=== PATIENT | female | born 1940 | race Caucasian/White ===

== ENCOUNTER 2023-07-30 16:15 | Observation (INO) ==
--- NOTE | 2023-07-30 16:39 | Emergency Department Note ---
Impression & Plan Closed pelvic fracture, Fall ED Provider Note NAME: MARCY JOHNSON AGE: 82 SEX: F : 1940 ARRIVES VIA: Ambulance INFORMANT: Patient, EMS ED PROVIDER(S): Allen Taylor DO CHIEF COMPLAINT: Hip pain HPI: The patient is an 82-year-old female who presented to the emergency department for an evaluation for pain. The patient had a fall yesterday. Apparently she had outpatient x-rays which showed a possible fracture. She was sent to the emergency department for further evaluation. There is no reported head injury. There is no reported neck pain. The patient does have underlying dementia. ROS: See above HPI for pertinent positives & negatives. A total of 10 systems reviewed and were otherwise negative. PAST MEDICAL HISTORY: See Below PAST SURGICAL HISTORY: See Below FAMILY HISTORY: See Below SOCIAL HISTORY: See Below HOME MEDICATIONS: See Below ALLERGIES: See Below VITALS: See Below PHYSICAL EXAMINATION: GENERAL: The patient is awake and alert very anxious appearing. EYES: The conjunctivae are clear. The pupils are round and reactive. EARS, NOSE, MOUTH AND THROAT: The nose is without any evidence of any deformity. NECK: The neck is nontender and supple. RESPIRATORY: Normal respiratory effort is noted there is no evidence of wheezing rhonchi or rales CARDIOVASCULAR: Regular rate and rhythm noted there no murmurs rubs or gallops normal S1 normal S2. GASTROINTESTINAL: The abdomen is soft. Abdomen is nontender. BACK: No midline tenderness or or step-off noted range of motion in flexion extension as well as rotation no signs of muscle spasm noted MUSCULOSKELETAL/EXTREMITIES: There is pain with range of motion testing of the left hip. There is no shortening. There is no pain with range of motion testing of the right hip. SKIN: There is no obvious evidence of any rash. There are no petechiae, pallor or cyanosis noted. NEUROLOGIC: Patient is awake alert and oriented to person place but not time or situation. Strength was symmetric but diminished MEDICAL DECISION MAKING: The patient is an 82-year-old female who presented to the emergency department for an evaluation of pelvic pain. The patient had a fall recently. She had outpatient radiographic studies that showed she may have a pelvic fracture. The patient was sent to the emergency department for further evaluation after she tried to walk again today and fell once again. The patient did appear to have left-sided hip pain but she had no shortening or deformity. I discussed patient's laboratory and radiographic studies with her. I discussed her condition with the on-call [facility] hospitalist. I discussed her condition with the emergency department case packer as well. We did try to call the patient's personal-fdc to see if they would be willing to manage her with inpatient rehabilitation but they were unable to. Triage Nursing notes reviewed. Prior medical records reviewed Vital Signs: reviewed and remarkable for elevated blood pressure. Differential diagnosis: Fracture, dislocation, contusion, intra-abdominal, pneumothorax, intrathoracic, intracranial, neurologic, compartment syndrome, rhabdomyolysis, as well as other pathologies. ER treatment provided: See below Diagnostics interpreted by me: ECG: EKG was obtained in the emergency department. My interpretation is normal sinus rhythm at 99 bpm. There is no ectopy. There is no acute ST segment abnormalities noted. No previous tracing was available. Cardiac Monitoring: An order was placed for continuous cardiac monitoring. The monitor shows a rate of 115 bpm with sinus tachycardia. Laboratory studies: As stated above and show below. Imaging studies: See below. Radiographic imaging was reviewed by myself Consultation(s): I discussed this case with Dr. Clark who is on-call for the [facility] hospitalist group. 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 GERD (gastroesophageal reflux disease) Dysphagia, oral phase Depression Anxiety Dementia Social History Smoking Status: Never smoker Feels Safe at Home: Yes Allergies Allergies Allergy/AdvReac Type Severity Reaction Status Date / Time amoxicillin Allergy Unknown Unverified 07/30/23 19:40 clarithromycin [From Biaxin] Allergy Unknown Unverified 07/30/23 19:40 Penicillins Allergy Unknown Unverified 07/30/23 19:40 Home Meds Home Medications Medication Instructions Recorded Confirmed acetaminophen 325 mg tablet 650 mg PO Q6 PRN .Temp >101/mild 07/30/23 07/30/23 pain albuterol sulfate 90 mcg/actuation 2 puff inhalation Q6 PRN Shortness 07/30/23 07/30/23 aerosol inhaler Of Breath Or Wheezing esomeprazole magnesium 40 mg 40 mg PO DAILY 07/30/23 07/30/23 capsule,delayed release (Nexium) fluticasone propionate 115 2 puff inhalation BID 07/30/23 07/30/23 mcg-salmeterol 21 mcg/actuation HFA inhaler (Advair HFA) hydroxyzine pamoate 25 mg capsule 25 mg PO Q12 PRN Anxiety 07/30/23 07/30/23 levothyroxine 50 mcg tablet 50 mcg PO QAM 07/30/23 07/30/23 lidocaine 4 % topical patch 1 patch topical DAILY 07/30/23 07/30/23 mineral oil-isopropyl myristat 1 applic topical BID 07/30/23 07/30/23 lotion mirtazapine 15 mg tablet 15 mg PO HS 07/30/23 07/30/23 montelukast 10 mg tablet 10 mg PO HS 07/30/23 07/30/23 paroxetine HCl 10 mg tablet (Paxil) 20 mg PO DAILY 07/30/23 07/30/23 risperidone 0.5 mg tablet 0.5 mg PO HS 07/30/23 07/30/23 (Risperdal) sennosides 8.6 mg-docusate sodium 2 tab-cap PO DAILY 07/30/23 07/30/23 50 mg tablet (Senna-S) tramadol 50 mg tablet 50 mg PO Q4 PRN Pain 07/30/23 07/30/23 Results & Data (ED) Vital Signs Vital Signs - 24 hr 07/30/23 16:26 07/30/23 16:36 07/30/23 16:51 Temperature 37.5 C Temperature Source Oral Pulse Rate 110 H 100 H Pulse Rate [Apical] Pulse Rhythm Regular Pulse Rhythm [Apical] Pulse Strength Normal Pulse Strength [Apical] Respiratory Rate 19 Respiratory Effort / Characteristics Non-Labored Spontaneous Respiratory Depth Normal Respiratory Pattern Regular Blood Pressure [Left Arm] Blood Pressure Mean [Left Arm] Pulse Oximetry 97 Oxygen Delivery Method Room Air Room Air Sepsis Recent Fever Within 48 Hours No Sepsis New/Unexplained Change in Mental Status Yes Sepsis Action Taken by Nursing Physician Notified 07/30/23 18:40 07/30/23 21:10 Temperature 37 C Temperature Source Oral Pulse Rate 115 H Pulse Rate [Apical] 95 H Pulse Rhythm Pulse Rhythm [Apical] Regular Pulse Strength Pulse Strength [Apical] Normal Respiratory Rate 19 Respiratory Effort / Characteristics Non-Labored Spontaneous Respiratory Depth Normal Respiratory Pattern Regular Blood Pressure [Left Arm] 158/102 H Blood Pressure Mean [Left Arm] 120 Pulse Oximetry 96 Oxygen Delivery Method Room Air Sepsis Recent Fever Within 48 Hours Sepsis New/Unexplained Change in Mental Status Sepsis Action Taken by [facility] Medications Current Medication List: was personally reviewed by me Laboratory Data Attestation: I reviewed the patient's lab results. 07/30/23 16:30 07/30/23 16:30 Lab Results 07/30/23 07/30/23 Range/Units 16:30 Unknown WBC 9.34 (4.8-10.8) K/ul RBC 3.77 L (4.20-5.40) M/uL Hgb 11.1 L (12.0-16.0) g/dl Hct 34.0 L (37.0-47.0) % MCV 90.2 (80.0-100.0) fL MCH 29.4 (25.0-34.0) pg MCHC 32.6 (32.0-36.0) g/dL RDW Std Deviation 46.4 H (36.4-46.3) fL RDW Coeff of [place] 14.2 (11.5-14.5) % Plt Count 262 (130-400) K/uL MPV 10.9 (9.4-12.4) fL Immature Gran % (Auto) 0.3 % Neut % (Auto) 82.0 % Lymph % (Auto) 5.5 % [place] % (Auto) 10.7 % Eos % (Auto) 1.3 % Baso % (Auto) 0.2 % Neut # (Auto) 7.66 H (1.40-6.50) K/uL Lymph # (Auto) 0.51 L (1.20-3.40) K/uL [place] # (Auto) 1.00 H (0.11-0.59) K/uL Eos # (Auto) 0.12 (0.00-0.50) K/uL Baso # (Auto) 0.02 (0.00-0.20) K/uL Immature Gran # (Auto) 0.03 (0.01-0.20) K/uL PT 10.7 (9.0-12.0) Seconds INR 1.0 (0.9-1.1) APTT 24 (21-31) Seconds PTT Ratio 0.9 Sodium 138 (136-145) mmol/L Potassium 4.2 (3.5-5.1) mmol/L Chloride 105 (98-107) mmol/L Carbon Dioxide 24 (21-32) mmol/L Anion Gap 9 (3-11) BUN 36 H (6-23) mg/dl Creatinine 1.20 (0.6-1.2) mg/dl Est Cr Clr Drug Dosing 31.2 ml/min Est GFR ( Amer) 48.7 ml/min Est GFR (Non-Af Amer) 42.1 ml/min BUN/Creatinine Ratio 30.0 H (10-20) Glucose 126 H (70-99(Fasting)) mg/dl Calcium 8.9 (8.6-10.3) mg/dl Magnesium 1.5 L (1.7-2.4) mg/dl Total Bilirubin 0.6 (0.2-1.0) mg/dl AST 21 (13-39) U/L ALT 15 (7-52) U/L Alkaline Phosphatase 94 (34-104) U/L Troponin I High Sens 15.4 H (0-14) pg/ml Total Protein 6.6 (6.0-8.3) gm/dl Albumin 3.8 (3.4-5.0) gm/dl Globulin 2.8 (2.5-4.0) gm/dl Albumin/Globulin Ratio 1.4 (0.9-2) Lipase 57 (11-82) U/L SARS-CoV-2, RNA, NAAT NEGATIVE (NEGATIVE) Imaging Data Attestation: I personally reviewed and interpreted this imaging study as follows: My Impression: 1 view chest x-ray was obtained in the emergency department. My interpretation is no free air or definite infiltrate, final report below. CT of the brain was obtained in the emergency department. My interpretation is no intracranial hemorrhage or mass effect, final report below. X-ray of the left hip and pelvis were obtained in the emergency department. My interpretation is no hip fracture, superior and inferior pubic rami fractures were noted on the left, final report below Radiologist's Impression: Chest X-Ray 07/30/23 16:34 XR chest 1V portable HISTORY: 82 years-old Female Chest pain, nonspecific acute chest pain status post fall COMPARISON: None TECHNIQUE: AP view of the chest FINDINGS: Cardiac silhouette is mildly enlarged. There is no pneumothorax, pleural effusion or airspace consolidation. Bones of the chest appear grossly intact. Degenerative changes of the shoulders and spine. IMPRESSION: No acute process. ACT 112: Negative or not required by law. The above report was generated using voice recognition software. It may contain grammatical, syntax or spelling errors. Electronically signed by: Ezra Recinos M.D. 07/30/2023 5:05 PM Hip/Pelvis X-Ray 07/30/23 16:34 XR hip LT 2V w pelvis HISTORY: 82 years-old Female fasll acute pain in the left hemipelvis status post fall COMPARISON: None TECHNIQUE: AP view of the pelvis with 2 views of the left hip FINDINGS: Fractured mildly displaced left superior and inferior pubic ramus fractures with marginal cortication. Moderate osteoarthritis of the hips. No acute fracture or dislocation of the femora. Soft tissue swelling lateral to the left hip. IMPRESSION: 1. Soft tissue swelling lateral to the left hip. No acute fracture or dislocation of the left femur identified. 2. Mildly displaced left superior and inferior pubic ramus fractures, likely subacute to chronic. ACT 112: Negative or not required by law. The above report was generated using voice recognition software. It may contain grammatical, syntax or spelling errors. Electronically signed by: Ezra Recinos M.D. 07/30/2023 5:[address] 07/30/23 16:41 CT OF THE CERVICAL SPINE WITHOUT CONTRAST CLINICAL HISTORY: Fall. COMPARISON STUDY: No previous studies for comparison. TECHNIQUE: Helical axial images of the cervical spine were obtained without IV contrast. Sagittal and coronal reconstructions were viewed. Automated exposure control was utilized for the study. A dose lowering technique was utilized adhering to the principles of ALARA. FINDINGS: Slight anterolisthesis of C7 on T1 is due to facet arthrosis. Vertebral body heights are maintained. No acute cervical spine fracture or subluxation is present. There is no prevertebral edema. Facet joints are intact. There is severe multilevel facet arthrosis and severe multilevel disc space narrowing with moderate osteophytosis. IMPRESSION: No acute cervical spine fracture or subluxation. ACT 112: Negative or not required by law. Electronically signed by: Sukumar Mendiola M.D. 07/30/2023 5:[address] 07/30/23 16:41 CT OF THE HEAD WITHOUT CONTRAST CLINICAL HISTORY: fall COMPARISON STUDY: No previous studies for comparison. TECHNIQUE: Helical axial images of the head were obtained without IV contrast. Automated exposure control was utilized for the study. A dose lowering technique was utilized adhering to the principles of ALARA. FINDINGS: No acute intracranial hemorrhage, midline shift or mass effect is present. Ventricular dilatation is likely due to central atrophy. White matter hypodensities favor small vessel disease. The basal cisterns are patent. No extra-axial collections are present. There are no findings to suggest acute dural sinus thrombosis or acute territorial infarct. There is a small left scalp contusion. There is no calvarial fracture. IMPRESSION: 1. No acute intracranial findings. 2. Small left scalp contusion. No calvarial fracture. ACT 112: Negative or not required by law. Electronically signed by: Sukumar Mendiola M.D. 07/30/2023 5:34 PM Discharge Plan Visit Data Chief Complaint: Hip Pain Stated Complaint: FALL, PELVIC PAIN ED Provider: Allen Taylor Discharge Problem: Closed pelvic fracture, Fall Patient Disposition: Being Evaluated by Hospitalist Forms Stand Alone Forms: [facility] Prescriptions Prescriptions: No Action acetaminophen 325 mg Tablet 650 mg PO Q6 PRN (Reason: .Temp >101/mild pain) paroxetine HCl [Paxil] 10 mg Tablet 20 mg PO DAILY lidocaine 4 % Adhesive Patch,Medicated 1 patch TOPICAL DAILY Rx Instructions: Apply to lower back. sennosides-docusate sodium [Senna-S] 8.6-50 mg Tablet 2 tab-cap PO DAILY Rx Instructions: Hold for loose stools tramadol 50 mg Tablet 50 mg PO Q4 PRN (Reason: Pain) levothyroxine 50 mcg tablet 50 mcg PO QAM esomeprazole magnesium [Nexium] 40 mg Capsule,Delayed Release(Dr/Ec) 40 mg PO DAILY montelukast 10 mg Tablet 10 mg PO HS mirtazapine 15 mg Tablet 15 mg PO HS albuterol sulfate 90 mcg/actuation HFA aerosol inhaler 2 puff INHALATION Q6 PRN (Reason: Shortness Of Breath Or Wheezing) risperidone [Risperdal] 0.5 mg Tablet 0.5 mg PO HS hydroxyzine pamoate 25 mg Capsule 25 mg PO Q12 PRN (Reason: Anxiety) Eucerin Lotion 1 applic TOPICAL BID Rx Instructions: Apply every am & pm shift, to dry skin fluticasone propion-salmeterol [Advair HFA] 115-21 mcg/actuation Hfa Aerosol Inhaler 2 puff INHALATION BID Referrals Referrals: PCP,NO [Physician] - Discharge Problem: Closed pelvic fracture Qualifiers: Encounter type: initial encounter Pelvic bone location: pubis Sublocation of pubis: superior rim Laterality: left Qualified Code(s): S32.512A - Fracture of superior rim of left pubis, initial encounter for closed fracture Fall Qualifiers: Encounter type: initial encounter Qualified Code(s): W19.XXXA - Unspecified fall, initial encounter
[2023-07-30 17:00] LABS: Basophils # (auto) 0.02 K/uL (0.00-0.20); Basophils % (auto) 0.2 %; Eosinophils # (auto) 0.12 K/uL (0.00-0.50); Eosinophils % (auto) 1.3 %; Hemoglobin 11.1 g/dl (12.0-16.0); Immature Granulocytes # (auto) 0.03 K/uL (0.01-0.20); Immature Granulocytes % (auto) 0.3 %; Lymphocytes # (auto) 0.51 K/uL (1.20-3.40); Lymphocytes % (auto) 5.5 %; Mean Corpuscular Hemoglobin 29.4 pg (25.0-34.0); Mean Corpuscular Hgb Conc 32.6 g/dL (32.0-36.0); Mean Corpuscular Volume 90.2 fL (80.0-100.0); Mean Platelet Volume 10.9 fL (9.4-12.4); Monocytes % (auto) 10.7 %; Neutrophils # (auto) 7.66 K/uL (1.40-6.50); Platelet Count 262 K/uL (130-400); RDW Coefficient of Variation 14.2 % (11.5-14.5); RDW Standard Deviation 46.4 fL (36.4-46.3); Red Blood Count 3.77 M/uL (4.20-5.40); White Blood Count 9.34 K/ul (4.8-10.8)
--- NOTE | 2023-07-30 17:07 | XRay Report ---
XR chest 1V portable HISTORY: 82 years-old Female Chest pain, nonspecific acute chest pain status post fall COMPARISON: None TECHNIQUE: AP view of the chest FINDINGS: Cardiac silhouette is mildly enlarged. There is no pneumothorax, pleural effusion or airspace consoli dation. Bones of the chest appear grossly intact. Degenerative changes of the shoulders and spine. IMPRESSION: No acute process. ACT 112: Negative or not required by law. The above report was generated using voice recognition software. It may contain grammatical, syntax o r spelling errors. Electronically signed by: Ezra Recinos M.D. 07/30/2023 5:05 PM
--- NOTE | 2023-07-30 17:09 | XRay Report ---
XR hip LT 2V w pelvis HISTORY: 82 years-old Female fasll acute pain in the left hemipelvis status post fall COMPARISON: None TECHNIQUE: AP view of the pelvis with 2 views of the left hip FINDINGS: Fractured mildly displaced left superior and inferior pubic ramus fractures with marginal cortication . Moderate osteoarthritis of the hips. No acute fracture or dislocation of the femora. Soft tissue sw elling lateral to the left hip. IMPRESSION: 1. Soft tissue swelling lateral to the left hip. No acute fracture or dislocation of the left femur i dentified. 2. Mildly displaced left superior and inferior pubic ramus fractures, likely subacute to chronic. ACT 112: Negative or not required by law. The above report was generated using voice recognition software. It may contain grammatical, syntax o r spelling errors. Electronically signed by: Ezra Recinos M.D. 07/30/2023 5:08 PM
[2023-07-30 17:15] LABS: Albumin Globulin Ratio 1.4 (0.9-2); Albumin Level 3.8 gm/dl (3.4-5.0); Bilirubin,Total 0.6 mg/dl (0.2-1.0); Calcium 8.9 mg/dl (8.6-10.3); Creatinine Clr Calc Pharmacy 31.2 ml/min; Est GFR (African American) 48.7 ml/min; Est GFR (Non-African American) 42.1 ml/min; Globulin 2.8 gm/dl (2.5-4.0); Potassium 4.2 mmol/L (3.5-5.1); Total Protein 6.6 gm/dl (6.0-8.3)
[2023-07-30 17:21] LABS: Troponin I High Sensitivity 15.4 pg/ml (0-14)
[2023-07-30 17:28] LABS: Partial Thromboplastin Ratio 0.9; Partial Thromboplastin Time 24 Seconds (21-31); Prothrombin Time 10.7 Seconds (9.0-12.0)
--- NOTE | 2023-07-30 17:35 | CT Scan Report ---
CT OF THE HEAD WITHOUT CONTRAST CLINICAL HISTORY: fall COMPARISON STUDY: No previous studies for comparison. TECHNIQUE: Helical axial images of the head were obtained without IV contrast. Automated exposure con trol was utilized for the study. A dose lowering technique was utilized adhering to the principles o f ALARA. FINDINGS: No acute intracranial hemorrhage, midline shift or mass effect is present. Ventricular dila tation is likely due to central atrophy. White matter hypodensities favor small vessel disease. The b angie cisterns are patent. No extra-axial collections are present. There are no findings to suggest ac kj dural sinus thrombosis or acute territorial infarct. There is a small left scalp contusion. There is no calvarial fracture. IMPRESSION: 1. No acute intracranial findings. 2. Small left scalp contusion. No calvarial fracture. ACT 112: Negative or not required by law. Electronically signed by: Sukumar Mendiola M.D. 07/30/2023 5:34 PM
--- NOTE | 2023-07-30 17:37 | CT Scan Report ---
CT OF THE CERVICAL SPINE WITHOUT CONTRAST CLINICAL HISTORY: Fall. COMPARISON STUDY: No previous studies for comparison. TECHNIQUE: Helical axial images of the cervical spine were obtained without IV contrast. Sagittal a nd coronal reconstructions were viewed. Automated exposure control was utilized for the study. A do se lowering technique was utilized adhering to the principles of ALARA. FINDINGS: Slight anterolisthesis of C7 on T1 is due to facet arthrosis. Vertebral body heights are ma intained. No acute cervical spine fracture or subluxation is present. There is no prevertebral edema. Facet joints are intact. There is severe multilevel facet arthrosis and severe multilevel disc spac e narrowing with moderate osteophytosis. IMPRESSION: No acute cervical spine fracture or subluxation. ACT 112: Negative or not required by law. Electronically signed by: Sukumar Mendiola M.D. 07/30/2023 5:36 PM
--- NOTE | 2023-07-30 19:02 | History & Physical Report ---
Date of Service July 30, 2023 Assessment & Plan (1) History of falling: Plan: Patient from [facility]; reportedly fell on the evening of 07/29 and hit left side of head No LOC; not on blood thinner Hip and pelvis x-ray on arrival showed mildly displaced left superior and inferior pubic ramus fractures, likely subacute to chronic Head CT revealed no acute intracranial findings Cervical spine CT NAF Doppler LE ordered, as LLE is much more swollen than RLE Clinically, patient denies hip pain at time of admission Acetaminophen 650 mg p.o. as needed for fever/pain 1-4 Tramadol 50 mg p.o. as needed for breakthrough pain Lidocaine patch application to lower back daily PT/OT consulted A.m. CBC, BMP, mag (2) Constipation: Plan: Clinically, patient endorses ongoing constipation Continue senna (3) Hypothyroidism: Plan: Continue levothyroxine (4) GERD (gastroesophageal reflux disease): Plan: Continue esomeprazole (5) Depression: Plan: Continue Paxil (6) Anxiety: Plan: Hydroxyzine as needed for sleep Plan Disposition: Obs - Admit to [facility] telemetry Full code Regular diet (aspiration precautions; patient denies difficulty swallowing at present, however dysphagia noted on problem list) VTE PPx: Teds (hold chemical DVT PPx for now in the setting of recent fall) History of Present Illness Chief Complaint: Hip pain Primary Care Provider: Jadiel Castellano is an 82-year-old female with PMH of dementia, hypothyroidism, HTN, GERD, anxiety, depression, and history of falling. She presented via EMS from [facility] for a fall on the evening of 07/29. Patient hit the left side of her head, and has been complaining of hip pain; not on blood thinners; no LOC. Hip x-ray was done the evening of 07/29 showing a possible fracture. Hip and pelvis x-ray on ED arrival on 07/30 showed mildly displaced left superior and inferior pubic ramus fractures, likely subacute to chronic. Patient is a poor historian due to her baseline cognitive state. However, she notes that she is not having any hip pain on arrival, and that her hip pain is ongoing. Patient is mildly hypertensive at 158/102 at time of admission; vitals otherwise stable. ED course: ROS: Patient endorses night sweats, left hip pain (ongoing). Patient denies difficulty swallowing, fever, chills, chest pain, SOB, abdominal pain, N/V/D, hip pain at present, back pain, urinary symptoms, burning with urination, or numbness or tingling going down the legs. Allergies Allergy/AdvReac Type Severity Reaction Status Date / Time amoxicillin Allergy Unknown Unverified 07/30/23 19:40 clarithromycin [From Biaxin] Allergy Unknown Unverified 07/30/23 19:40 Penicillins Allergy Unknown Unverified 07/30/23 19:40 Home Medications Medication Instructions Recorded Confirmed Type acetaminophen 325 mg tablet 650 mg PO Q6 PRN .Temp >101/mild 07/30/23 07/30/23 History pain albuterol sulfate 90 mcg/actuation 2 puff inhalation Q6 PRN Shortness 07/30/23 07/30/23 History aerosol inhaler Of Breath Or Wheezing esomeprazole magnesium 40 mg 40 mg PO DAILY 07/30/23 07/30/23 History capsule,delayed release (Nexium) fluticasone propionate 115 2 puff inhalation BID 07/30/23 07/30/23 History mcg-salmeterol 21 mcg/actuation HFA inhaler (Advair HFA) hydroxyzine pamoate 25 mg capsule 25 mg PO Q12 PRN Anxiety 07/30/23 07/30/23 History levothyroxine 50 mcg tablet 50 mcg PO QAM 07/30/23 07/30/23 History lidocaine 4 % topical patch 1 patch topical DAILY 07/30/23 07/30/23 History mineral oil-isopropyl myristat 1 applic topical BID 07/30/23 07/30/23 History lotion mirtazapine 15 mg tablet 15 mg PO HS 07/30/23 07/30/23 History montelukast 10 mg tablet 10 mg PO HS 07/30/23 07/30/23 History paroxetine HCl 10 mg tablet (Paxil) 20 mg PO DAILY 07/30/23 07/30/23 History risperidone 0.5 mg tablet 0.5 mg PO HS 07/30/23 07/30/23 History (Risperdal) sennosides 8.6 mg-docusate sodium 2 tab-cap PO DAILY 07/30/23 07/30/23 History 50 mg tablet (Senna-S) tramadol 50 mg tablet 50 mg PO Q4 PRN Pain 07/30/23 07/30/23 History 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 GERD (gastroesophageal reflux disease) Dysphagia, oral phase Depression Anxiety Dementia Social History Smoking Status: Never smoker Second Hand Exposure: No; Hx Alcohol Use: No Hx Substance Use: No Preferred Language: Montserratian Communication Ability: Impaired Director Sales Training Required: No Beliefs That Will Affect Care: None Current Living Situation: Personal Care Facility Current Living Situation Comment: [facility] Other Information That Helps Us Care for You: Yes Feels Safe at Home: Yes Safety Concerns: Feels Safe At This Time Assistive Devices: None Assistive Devices Comment: orders to use immobilizer for OOB Review of Systems Review of Systems: See HPI above Physical Exam Physical Exam: General: Patient is trembling, however denies acute physical pain; non-toxic appearing; cooperative HEENT: normocephalic, atraumatic; no scleral icterus; PERRLA w/ EOMs intact; m oist mucus membrane; vision and hearing grossly intact Neck: supple; no JVD; no lymphadenopathy; trachea midline Skin: warm, dry without signs of tenting; no cyanosis; no rashes, bruising, lesions, or erythema noted CV: chest wall NTP; regular rapid rhythm at ~100bpm; S1/S2 normal; no murmurs/rubs/gallops; pulses intact and symmetric at radial, DP, and PT Lungs: no acute respiratory distress; symmetrical chest wall expansion; clear breath sounds across all lung cruz w/o adventitious sounds; no wheezing ABD: Soft, NTP; BS present; no rebound/guarding; no ascites; no distention; negative CVA tenderness MSK: no tics or fasciculations; edema in LEs, with left calf bigger than right, scaly Neuro: A&Ox3; normal mood and affect; fluent speech; CN2-12 intact; no focal deficits; sensation grossly intact Results & Data Results & Data Vital Signs (Past 12 Hours) Vital Signs Temp Pulse Pulse Resp BP Pulse Ox O2 Del Method 07/30/23 18:40 37 C 95 H 19 158/102 H 96 Room Air 07/30/23 16:51 100 H 07/30/23 16:36 97 Room Air 07/30/23 16:26 37.5 C 110 H 19 Room Air Laboratory Results Abnormal lab results 07/30/23 Range/Units 16:30 RBC 3.77 L (4.20-5.40) M/uL Hgb 11.1 L (12.0-16.0) g/dl Hct 34.0 L (37.0-47.0) % RDW Std Deviation 46.4 H (36.4-46.3) fL Neut # (Auto) 7.66 H (1.40-6.50) K/uL Lymph # (Auto) 0.51 L (1.20-3.40) K/uL Gilmer # (Auto) 1.00 H (0.11-0.59) K/uL BUN 36 H (6-23) mg/dl BUN/Creatinine Ratio 30.0 H (10-20) Glucose 126 H (70-99(Fasting)) mg/dl Troponin I High Sens 15.4 H (0-14) pg/ml Diagnostic Findings Chest X-Ray 07/30/23 16:34 XR chest 1V portable HISTORY: 82 years-old Female Chest pain, nonspecific acute chest pain status post fall COMPARISON: None TECHNIQUE: AP view of the chest FINDINGS: Cardiac silhouette is mildly enlarged. There is no pneumothorax, pleural effusion or airspace consolidation. Bones of the chest appear grossly intact. Degenerative changes of the shoulders and spine. IMPRESSION: No acute process. ACT 112: Negative or not required by law. The above report was generated using voice recognition software. It may contain grammatical, syntax or spelling errors. Electronically signed by: Ezra Recinos M.D. 07/30/2023 5:05 PM Hip/Pelvis X-Ray 07/30/23 16:34 XR hip LT 2V w pelvis HISTORY: 82 years-old Female fasll acute pain in the left hemipelvis status post fall COMPARISON: None TECHNIQUE: AP view of the pelvis with 2 views of the left hip FINDINGS: Fractured mildly displaced left superior and inferior pubic ramus fractures with marginal cortication. Moderate osteoarthritis of the hips. No acute fracture or dislocation of the femora. Soft tissue swelling lateral to the left hip. IMPRESSION: 1. Soft tissue swelling lateral to the left hip. No acute fracture or dislocation of the left femur identified. 2. Mildly displaced left superior and inferior pubic ramus fractures, likely subacute to chronic. ACT 112: Negative or not required by law. The above report was generated using voice recognition software. It may contain grammatical, syntax or spelling errors. Electronically signed by: Ezra Recinos M.D. 07/30/2023 5:[address] 07/30/23 16:41 CT OF THE CERVICAL SPINE WITHOUT CONTRAST CLINICAL HISTORY: Fall. COMPARISON STUDY: No previous studies for comparison. TECHNIQUE: Helical axial images of the cervical spine were obtained without IV contrast. Sagittal and coronal reconstructions were viewed. Automated exposure control was utilized for the study. A dose lowering technique was utilized adhering to the principles of ALARA. FINDINGS: Slight anterolisthesis of C7 on T1 is due to facet arthrosis. Vertebral body heights are maintained. No acute cervical spine fracture or subluxation is present. There is no prevertebral edema. Facet joints are intact. There is severe multilevel facet arthrosis and severe multilevel disc space narrowing with moderate osteophytosis. IMPRESSION: No acute cervical spine fracture or subluxation. ACT 112: Negative or not required by law. Electronically signed by: Sukumar Mendiola M.D. 07/30/2023 5:[address] 07/30/23 16:41 CT OF THE HEAD WITHOUT CONTRAST CLINICAL HISTORY: fall COMPARISON STUDY: No previous studies for comparison. TECHNIQUE: Helical axial images of the head were obtained without IV contrast. Automated exposure control was utilized for the study. A dose lowering technique was utilized adhering to the principles of ALARA. FINDINGS: No acute intracranial hemorrhage, midline shift or mass effect is present. Ventricular dilatation is likely due to central atrophy. White matter hypodensities favor small vessel disease. The basal cisterns are patent. No extra-axial collections are present. There are no findings to suggest acute dural sinus thrombosis or acute territorial infarct. There is a small left scalp contusion. There is no calvarial fracture. IMPRESSION: 1. No acute intracranial findings. 2. Small left scalp contusion. No calvarial fracture. ACT 112: Negative or not required by law. Electronically signed by: Sukumar Mendiola M.D. 07/30/2023 5:34 PM Code Status & VTE Plan Code Status Full code VTE Prophylaxis Plan VTE Prophylaxis will be ordered: Yes Supervising Physician Co-Signing Physician Notes Patient seen and examined, chart reviewed, case discussed with Denis Tovar PA-C and I agree with the assessment and plan as above except as otherwise noted Labs and images reviewed 80-year-old female with history of hypertension, GERD, anxiety, depression, and falls who presents after a fall and continued hip pain. She has a mildly displaced left superior and inferior pubic ramus fracture subacute to chronic, no surgical intervention is recommended. Due to ongoing hip pain limited ambulation she is recommended for admission PT/OT and pain control. No fracture or intracranial abnormality noted on CT head/CT C-spine. Endorses pain at left hip palpation at bedside. Hemodynamically stable. Agree with assessment and management above PG Care Time/CCT Total # of Minutes Spent Total Time Spent with Patient: Total time spent is greater than 50% in coordination of care (as documented) at patient's floor/unit and/or counseling patient: [place] [address] INT INP/OBS CARE 2/55MIN Patient Type New Medical Decision Making Moderate Complexity Diagnoses History of falling Z91.81 Constipation K59.00 Hypothyroidism E03.9 GERD (gastroesophageal reflux disease) K21.9 Depression F32.A Anxiety F41.9
[2023-07-30] MEDS ORDERED: ACETAMINOPHEN 325 MG TAB PO PRN (19:59)
[2023-07-30 20:11] LABS: Magnesium 1.5 mg/dl (1.7-2.4)
[2023-07-30] MEDS ORDERED: hydrOXYzine HCl 25 MG TAB PO PRN (23:02)
[2023-07-30] MEDS ORDERED: ALBUTEROL HFA 8 GM INHALER INH PRN (23:02)
[2023-07-30] MEDS ORDERED: traMADol HCL 50 MG TABLET PO PRN (23:02)
[2023-07-31] MEDS: EUCERIN CR 120 GM JAR TOP SCH ×3 (00:59→19:35)
[2023-07-31] MEDS: risperiDONE 0.5 MG TABLET PO SCH ×2 (01:00→19:37)
[2023-07-31] MEDS: MONTELUKAST SODIUM 10 MG TABLET PO SCH ×2 (01:00→19:36)
[2023-07-31] MEDS: MIRTAZAPINE TAB 15 MG TAB PO SCH ×2 (01:01→19:36)
[2023-07-31 06:11] LABS: Basophils # (auto) 0.03 K/uL (0.00-0.20); Basophils % (auto) 0.4 %; Eosinophils # (auto) 0.25 K/uL (0.00-0.50); Eosinophils % (auto) 3.6 %; Hematocrit (blood only) 32.7 % (37.0-47.0); Hemoglobin 10.7 g/dl (12.0-16.0); Immature Granulocytes # (auto) 0.02 K/uL (0.01-0.20); Immature Granulocytes % (auto) 0.3 %; Lymphocytes % (auto) 11.4 %; Mean Corpuscular Hemoglobin 29.6 pg (25.0-34.0); Mean Corpuscular Hgb Conc 32.7 g/dL (32.0-36.0); Mean Corpuscular Volume 90.6 fL (80.0-100.0); Mean Platelet Volume 10.5 fL (9.4-12.4); Monocytes # (auto) 0.97 K/uL (0.11-0.59); Monocytes % (auto) 13.8 %; Neutrophils # (auto) 4.96 K/uL (1.40-6.50); Neutrophils % (auto) 70.5 %; Platelet Count 251 K/uL (130-400); RDW Standard Deviation 46.8 fL (36.4-46.3); Red Blood Count 3.61 M/uL (4.20-5.40); White Blood Count 7.03 K/ul (4.8-10.8)
[2023-07-31 06:31] LABS: BUN Creatinine Ratio 26.5 (10-20); Calcium 8.9 mg/dl (8.6-10.3); Creatinine Clr Calc Pharmacy 33.1 ml/min; Est GFR (African American) 52.4 ml/min; Est GFR (Non-African American) 45.2 ml/min; Magnesium 1.5 mg/dl (1.7-2.4); Potassium 3.8 mmol/L (3.5-5.1)
[2023-07-31] MEDS: LEVOTHYROXINE SODIUM 50 MCG TABLET PO SCH (06:45)
--- NOTE | 2023-07-31 07:08 | Electrocardiogram Report ---
Test Reason : Blood Pressure : / mmHG Vent. Rate : 099 BPM Atrial Rate : 099 BPM P-R Int : 144 ms QRS Dur : 062 ms QT Int : 344 ms P-R-T Axes : 064 019 057 degrees QTc Int : 441 ms Normal sinus rhythm Normal ECG No previous ECGs available Confirmed by Eris Madera ([id number]) on 07/31/2023 7:08:19 AM Referred By: Rashmi Abdi Confirmed By:Amadou Madera
[2023-07-31] MEDS: DOCUSATE SODIUM/SENNA 50/8.6MG TAB PO SCH (09:59)
[2023-07-31] MEDS: PANTOprazole 40 MG TAB PO SCH (09:59)
[2023-07-31] MEDS: FLUTICASONE/VILANTEROL 200/25MCG 14 PUFFS/INHALER INH SCH (10:00)
[2023-07-31] MEDS: PARoxetine HCL 20 MG TAB PO SCH (10:00)
[2023-07-31] MEDS: LIDOCAINE 5% 1 PATCH TD SCH (10:13)
--- NOTE | 2023-07-31 10:36 | Ultrasound Report ---
LEFT LOWER EXTREMITY VENOUS DOPPLER HISTORY: Left leg edema, redness, DVT r/o COMPARISON STUDY: None. FINDINGS: There is normal compressibility, flow, and augmentation within the left lower extremity arielle p venous system. IMPRESSION: No DVT within the left lower extremity. ACT 112: Negative or not required by law. Electronically signed by: Denis Monroe M.D. 07/31/2023 10:33 AM
--- NOTE | 2023-07-31 16:42 | Hospitalist Progress Note ---
Date of Service July 31, 2023 Assessment & Plan (1) History of falling: Plan: Patient from [facility]; reportedly fell on the evening of 07/29 and hit left side of head No LOC; not on blood thinner Hip and pelvis x-ray on arrival showed mildly displaced left superior and inferior pubic ramus fractures, likely subacute to chronic Head CT revealed no acute intracranial findings Cervical spine CT NAF Doppler LE ordered, as LLE is much more swollen than RLE Clinically, patient denies hip pain at time of admission Acetaminophen 650 mg p.o. as needed for fever/pain 1-4 Tramadol 50 mg p.o. as needed for breakthrough pain Lidocaine patch application to lower back daily PT/OT consulted Discussed with the therapeutic case manager (2) Constipation: Plan: Clinically, patient endorses ongoing constipation Continue senna (3) Hypothyroidism: Plan: Continue levothyroxine (4) GERD (gastroesophageal reflux disease): Plan: Continue esomeprazole (5) Depression: Plan: Continue Paxil (6) Anxiety: Plan: Hydroxyzine as needed for sleep Plan Disposition: Pending placement discussed with the therapeutic case manager, according to therapeutic case manager patient cannot be discharged till Wednesday Full code Regular diet (aspiration precautions; patient denies difficulty swallowing at present, however dysphagia noted on problem list) VTE PPx: Teds (hold chemical DVT PPx for now in the setting of recent fall) Admission and Anticipated Discharge Date Admission Date: July 30, 2023 Physical Exam Physical Exam: General: Patient is trembling, however denies acute physical pain; non-toxic appearing; cooperative HEENT: normocephalic, atraumatic; no scleral icterus; PERRLA w/ EOMs intact; moist mucus membrane; vision and hearing grossly intact Neck: supple; no JVD; no lymphadenopathy; trachea midline Skin: warm, dry without signs of tenting; no cyanosis; no rashes, bruising, lesions, or erythema noted CV: chest wall NTP; regular rapid rhythm at ~100bpm; S1/S2 normal; no murmurs/rubs/gallops; pulses intact and symmetric at radial, DP, and PT Lungs: no acute respiratory distress; symmetrical chest wall expansion; clear breath sounds across all lung cruz w/o adventitious sounds; no wheezing ABD: Soft, NTP; BS present; no rebound/guarding; no ascites; no distention; negative CVA tenderness MSK: no tics or fasciculations; edema in LEs, with left calf bigger than right, scaly Neuro: A&Ox3; normal mood and affect; fluent speech; CN2-12 intact; no focal deficits; sensation grossly intact Results & Data Results & Data Vital Signs (Past 12 Hours) Vital Signs Temp Pulse Pulse Resp BP Pulse Ox O2 Del Method 07/31/23 15:49 36.6 C 82 17 151/75 H 97 Room Air 07/31/23 14:59 98 H 07/31/23 12:03 36.6 C 92 H 17 147/80 H 95 Room Air 07/31/23 07:00 83 PG Care Time/CCT Total # of Minutes Spent Total Time Spent with Patient: Total time spent is greater than 50% in coordination of care (as documented) at patient's floor/unit and/or counseling patient: Coding Level of Care Code 57215 SUB INP/OBS CARE 2/35MIN Diagnoses History of falling Z91.81 Constipation K59.00 Hypothyroidism E03.9 GERD (gastroesophageal reflux disease) K21.9 Depression F32.A Anxiety F41.9
[2023-08-01] MEDS: LEVOTHYROXINE SODIUM 50 MCG TABLET PO SCH (05:29)
[2023-08-01 08:07] LABS: Hematocrit (blood only) 34.5 % (37.0-47.0); Hemoglobin 11.1 g/dl (12.0-16.0); Mean Corpuscular Hemoglobin 29.2 pg (25.0-34.0); Mean Corpuscular Hgb Conc 32.2 g/dL (32.0-36.0); Mean Corpuscular Volume 90.8 fL (80.0-100.0); Mean Platelet Volume 11.5 fL (9.4-12.4); Platelet Count 184 K/uL (130-400); RDW Coefficient of Variation 14.5 % (11.5-14.5); RDW Standard Deviation 47.7 fL (36.4-46.3); White Blood Count 8.74 K/ul (4.8-10.8)
[2023-08-01 08:08] LABS: Basophils # (auto) 0.03 K/uL (0.00-0.20); Basophils % (auto) 0.3 %; Eosinophils # (auto) 0.53 K/uL (0.00-0.50); Eosinophils % (auto) 6.1 %; Immature Granulocytes # (auto) 0.03 K/uL (0.01-0.20); Immature Granulocytes % (auto) 0.3 %; Lymphocytes # (auto) 0.67 K/uL (1.20-3.40); Lymphocytes % (auto) 7.7 %; Monocytes # (auto) 0.99 K/uL (0.11-0.59); Monocytes % (auto) 11.3 %; Neutrophils # (auto) 6.49 K/uL (1.40-6.50); Neutrophils % (auto) 74.3 %; RBC Morphology Unremarkable
[2023-08-01 08:09] LABS: BUN Creatinine Ratio 26.4 (10-20); Calcium 8.8 mg/dl (8.6-10.3); Creatinine Clr Calc Pharmacy 42.2 ml/min; Est GFR (African American) 71.9 ml/min; Potassium 3.8 mmol/L (3.5-5.1)
[2023-08-01] MEDS: PANTOprazole 40 MG TAB PO SCH (08:22)
[2023-08-01] MEDS: PARoxetine HCL 20 MG TAB PO SCH (08:22)
[2023-08-01] MEDS: EUCERIN CR 120 GM JAR TOP SCH ×2 (08:22→20:24)
[2023-08-01] MEDS: DOCUSATE SODIUM/SENNA 50/8.6MG TAB PO SCH (08:22)
[2023-08-01] MEDS: FLUTICASONE/VILANTEROL 200/25MCG 14 PUFFS/INHALER INH SCH (08:23)
[2023-08-01] MEDS: LIDOCAINE 5% 1 PATCH TD SCH (10:04)
--- NOTE | 2023-08-01 16:58 | Hospitalist Progress Note ---
Date of Service August 01, 2023 Assessment & Plan (1) History of falling: Plan: Patient from [facility]; reportedly fell on the evening of 07/29 and hit left side of head No LOC; not on blood thinner Hip and pelvis x-ray on arrival showed mildly displaced left superior and inferior pubic ramus fractures, likely subacute to chronic Head CT revealed no acute intracranial findings Cervical spine CT NAF Doppler LE no evidence of DVT Patient is Well with no significant pain, patient can be discharged, discussed with the egg caser can be discharged tomorrow (2) Constipation: Plan: Clinically, patient endorses ongoing constipation Continue senna At [facility] (3) Hypothyroidism: Plan: Continue levothyroxine (4) GERD (gastroesophageal reflux disease): Plan: Continue esomeprazole (5) Depression: Plan: Continue Paxil (6) Anxiety: Plan: Hydroxyzine as needed for sleep Plan Disposition: Obs - Admit to [facility] telemetry Full code Regular diet (aspiration precautions; patient denies difficulty swallowing at present, however dysphagia noted on problem list) VTE PPx: Teds (hold chemical DVT PPx for now in the setting of recent fall) Admission and Anticipated Discharge Date Admission Date: July 30, 2023 Physical Exam Physical Exam: General: Patient is trembling, however denies acute physical pain; non-toxic appearing; cooperative HEENT: normocephalic, atraumatic; no scleral icterus; PERRLA w/ EOMs intact; moist mucus membrane; vision and hearing grossly intact Neck: supple; no JVD; no lymphadenopathy; trachea midline Skin: warm, dry without signs of tenting; no cyanosis; no rashes, bruising, lesions, or erythema noted CV: chest wall NTP; regular rapid rhythm at ~100bpm; S1/S2 normal; no mu rmurs/rubs/gallops; pulses intact and symmetric at radial, DP, and PT Lungs: no acute respiratory distress; symmetrical chest wall expansion; clear breath sounds across all lung cruz w/o adventitious sounds; no wheezing ABD: Soft, NTP; BS present; no rebound/guarding; no ascites; no distention; negative CVA tenderness MSK: no tics or fasciculations; edema in LEs, with left calf bigger than right, scaly Neuro: A&Ox3; normal mood and affect; fluent speech; CN2-12 intact; no focal deficits; sensation grossly intact Results & Data Results & Data Vital Signs (Past 12 Hours) Vital Signs Temp Pulse Resp BP Pulse Ox O2 Del Method 08/01/23 15:50 36.4 C L 95 H 17 128/78 97 Room Air 08/01/23 13:07 36.6 C 92 H 17 120/79 99 Room Air 08/01/23 08:42 36.6 C 79 17 132/72 95 Room Air PG Care Time/CCT Total # of Minutes Spent Total Time Spent with Patient: Total time spent is greater than 50% in coordination of care (as documented) at patient's floor/unit and/or counseling patient: Coding Level of Care Code 15620 SUB INP/OBS CARE 2/35MIN Diagnoses History of falling Z91.81 Constipation K59.00 Hypothyroidism E03.9 GERD (gastroesophageal reflux disease) K21.9 Depression F32.A Anxiety F41.9
[2023-08-01] MEDS ORDERED: POLYETHYLENE (MIRALAX) 17 GM PACK PO PRN (17:00)
[2023-08-01] MEDS: MIRTAZAPINE TAB 15 MG TAB PO SCH (20:24)
[2023-08-01] MEDS: MONTELUKAST SODIUM 10 MG TABLET PO SCH (21:50)
[2023-08-01] MEDS: risperiDONE 0.5 MG TABLET PO SCH (21:51)
[2023-08-02] MEDS: LEVOTHYROXINE SODIUM 50 MCG TABLET PO SCH (06:22)
[2023-08-02] MEDS: LIDOCAINE 5% 1 PATCH TD SCH (07:26)
[2023-08-02] MEDS: PANTOprazole 40 MG TAB PO SCH (07:27)
[2023-08-02] MEDS: FLUTICASONE/VILANTEROL 200/25MCG 14 PUFFS/INHALER INH SCH (07:27)
[2023-08-02] MEDS: DOCUSATE SODIUM/SENNA 50/8.6MG TAB PO SCH (07:27)
[2023-08-02] MEDS: EUCERIN CR 120 GM JAR TOP SCH (07:27)
[2023-08-02] MEDS: PARoxetine HCL 20 MG TAB PO SCH (07:27)
--- NOTE | 2023-08-02 19:03 | Discharge Summary ---
Date of Service August 02, 2023 Admission HPI Per Admitting Provider Nona is an 82-year-old female with PMH of dementia, hypothyroidism, HTN, GERD, anxiety, depression, and history of falling. She presented via EMS from [facility] for a fall on the evening of 07/29. Patient hit the left side of her head, and has been complaining of hip pain; not on blood thinners; no LOC. Hip x-ray was done the evening of 07/29 showing a possible fracture. Hip and pelvis x-ray on ED arrival on 07/30 showed mildly displaced left superior and inferior pubic ramus fractures, likely subacute to chronic. Patient is a poor historian due to her baseline cognitive state. However, she notes that she is not having any hip pain on arrival, and that her hip pain is ongoing. Patient is mildly hypertensive at 158/102 at time of admission; vitals otherwise stable. ED course: ROS: Patient endorses night sweats, left hip pain (ongoing). Patient denies difficulty swallowing, fever, chills, chest pain, SOB, abdominal pain, N/V/D, hip pain at present, back pain, urinary symptoms, burning with urination, or numbness or tingling going down the legs. Principal Diagnosis mechanical fall complicated ramus fracture , pain is fairly managed, patient able to ambulate, patient consulted with PT recommend rehab, patient discharged home, no other significant injury Discharge Exam General: Patient is trembling, however denies acute physical pain; non-toxic appearing; cooperative HEENT: normocephalic, atraumatic; no scleral icterus; PERRLA w/ EOMs intact; moist mucus membrane; vision and hearing grossly intact Neck: supple; no JVD; no lymphadenopathy; trachea midline Skin: warm, dry without signs of tenting; no cyanosis; no rashes, bruising, lesions, or erythema noted CV: chest wall NTP; regular rapid rhythm at ~100bpm; S1/S2 normal; no murmurs/rubs/gallops; pulses intact and symmetric at radial, DP, and PT Lungs: no acute respiratory distress; symmetrical chest wall expansion; clear breath sounds across all lung cruz w/o adventitious sounds; no wheezing ABD: Soft, NTP; BS present; no rebound/guarding; no ascites; no distention; negative CVA tenderness MSK: no tics or fasciculations; edema in LEs, with left calf bigger than right, scaly Neuro: A&Ox3; normal mood and affect; fluent speech; CN2-12 intact; no focal deficits; sensation grossly intact Discharge Data Allergies Allergy/AdvReac Type Severity Reaction Status Date / Time amoxicillin Allergy Unknown ON EMB[facility]Y Verified 08/02/23 08:51 [facility] clarithromycin [From Biaxin] Allergy Unknown ON EMBASSY Verified 08/02/23 08:51 [facility] Penicillins Allergy Unknown ON EMBASSY Verified 08/02/23 08:51 [facility] Consultations 07/30/23 18:12 ED Decision to Admit Stat Ordered Studies 07/30/23 16:41 CT cervical spine wo con Stat CT head/brain wo con Stat 07/31/23 US venous doppler LE LT Stat Hospital Course (1) Closed pelvic fracture: mechanical fall, no serious injury, patient is able to ambulate with no significant pain, patient seen by PT recommend rehab, (2) Anxiety: (3) Depression: (4) GERD (gastroesophageal reflux disease): (5) History of falling: (6) Hypothyroidism: (7) Constipation: Total Time Total Time Spent Total Time Spent (In Minutes): 45 Discharge Plan Discharge Items Patient Disposition: Transfer [facility] Fac Reason For Visit: FALL, HIP PAIN, DEMENTIA Discharge Diagnosis: mechanical fall ramus fracture Activity: Resume your previous activity Bathing: No limitations Exercise/Sports: Gradually increase as tolerated Driving/Machine Use: No limitations Weightbearing: Full weightbearing Non-emergency contact: Primary Care Provider Call non-emergency contact if: you have any medication questions Follow-up/Referrals: Jadiel Palacios [Primary Care Provider] - Diet: Low Sodium (2gm) Addtl Attending Provider Instructions: Mechanical fall with ramus fracture ,pain tolerable able to ambulate , needs outpatient bone density test Pending Studies at Discharge: No Stand-Alone Forms: My Showpad Skilled Items Patient informed of condition?: No DNR: No Discharge Level of Care: Skilled Communicable Disease: No Discharge Prognosis: Stable Lines: None Urinary Catheter: No Medications and DC Order Prescriptions: Continued acetaminophen 325 mg Tablet 650 mg PO Q6 PRN (Reason: .Temp >101/mild pain) paroxetine HCl [Paxil] 10 mg Tablet 20 mg PO DAILY lidocaine 4 % Adhesive Patch,Medicated 1 patch TOPICAL DAILY Rx Instructions: Apply to lower back. sennosides-docusate sodium [Senna-S] 8.6-50 mg Tablet 2 tab-cap PO DAILY Rx Instructions: Hold for loose stools tramadol 50 mg Tablet 50 mg PO Q4 PRN (Reason: Pain) levothyroxine 50 mcg tablet 50 mcg PO QAM esomeprazole magnesium [Nexium] 40 mg Capsule,Delayed Release(Dr/Ec) 40 mg PO DAILY montelukast 10 mg Tablet 10 mg PO HS mirtazapine 15 mg Tablet 15 mg PO HS albuterol sulfate 90 mcg/actuation HFA aerosol inhaler 2 puff INHALATION Q6 PRN (Reason: Shortness Of Breath Or Wheezing) risperidone [Risperdal] 0.5 mg Tablet 0.5 mg PO HS hydroxyzine pamoate 25 mg Capsule 25 mg PO Q12 PRN (Reason: Anxiety) mineral oil-isopropyl myristat Lotion 1 applic TOPICAL BID Rx Instructions: Apply every am & pm shift, to dry skin fluticasone propion-salmeterol [Advair HFA] 115-21 mcg/actuation Hfa Aerosol Inhaler 2 puff INHALATION BID acetaminophen 325 mg Tablet 650 mg PO Q6H MDD 3gm/24 hours PRN (Reason: Fever Or Pain) lidocaine 4 % Adhesive Patch,Medicated 1 patch TOPICAL DAILY Rx Instructions: APPLY QAM, REMOVE QPM. sennosides-docusate sodium [Stimulant Laxative Plus] 8.6-50 mg tablet 2 tab PO DAILY Rx Instructions: Hold for loose stools tramadol 50 mg Tablet 50 mg PO BID levothyroxine 50 mcg tablet 50 mcg PO QAM bisacodyl [Dulcolax (bisacodyl)] 10 mg Suppository 10 mg CA DAILY PRN (Reason: Constipation) Rx Instructions: Give on the evening of the third day with no bowel movement. Fleet Enema 19-7 gram/118 mL Enema 118 ml CA DAILY PRN (Reason: Constipation) Rx Instructions: Administer on the morning of the 4th day without a bowel movement, if no results from enema notify mirtazapine 15 mg tablet 15 mg PO HS albuterol sulfate 90 mcg/actuation HFA aerosol inhaler 2 puff INHALATION Q6H PRN (Reason: Shortness Of Breath) magnesium hydroxide [Milk Of Magnesia Concentrated] 2,400 mg/10 mL Suspension 30 ml PO DAILY PRN (Reason: Constipation) Rx Instructions: Administer on the morning of the 3rd day if no bowel movement. paroxetine HCl [Paxil] 10 mg Tablet 10 mg PO DAILY esomeprazole magnesium 40 mg Capsule,Delayed Release(Dr/Ec) 40 mg PO DAILYBB hydroxyzine pamoate 25 mg Capsule 25 mg PO Q12H PRN (Reason: Anxiety) Discharge Orders: Discharge Order (Routine); Ordered 08/02/23 Ordered By: Erickson Cope Admission Data Admit Date/Time: 07/30/23 20:30 Attending Provider: Erickson Cope Admit Provider: Shakeel Walls Primary Care Provider: Jadiel Palacios Other Providers: Shakeel Walls Other Interventions: Discharge Summary Assessment (RN) Last Done: 08/02/23 12:20 Supervising Physician Co-Signing Physician Notes Patient seen and examined, chart reviewed, case discussed with Denis Tovar PA-C and I agree with the assessment and plan as above except as otherwise noted Labs and images reviewed 80-year-old female with history of hypertension, GERD, anxiety, depression, and falls who presents after a fall and continued hip pain. She has a mildly displaced left superior and inferior pubic ramus fracture subacute to chronic, no surgical intervention is recommended. Due to ongoing hip pain limited ambulation she is recommended for admission PT/OT and pain control. No fracture or intracranial abnormality noted on CT head/CT C-spine. Endorses pain at left hip palpation at bedside. Hemodynamically stable. Agree with assessment and management above Coding Level of Care Code 46200 INP/OBS DISCH >30 MIN Diagnoses Closed pelvic fracture S32.512A Encounter type: initial encounter Laterality: left Pelvic bone location: pubis Sublocation of pubis: superior rim Anxiety F41.9 Depression F32.A GERD (gastroesophageal reflux disease) K21.9 History of falling Z91.81 Hypothyroidism E03.9 Constipation K59.00
== END 2023-08-02 13:50 ==
LOC: EDBD → SUATTDRO → ED 16:15 → SUATTDRO 19:59 → 2N 19:59 → MERGE 19:59 → INTOOBSV 20:30 → 2N 22:40

== ENCOUNTER 2023-09-29 17:04 | Inpatient (IN) ==
--- NOTE | 2023-09-29 17:54 | Emergency Department Note ---
Impression & Plan Closed fracture of right hip, Dementia, Acute UTI ED Provider Note NAME: MARCY JOHNSON AGE: 82 SEX: F ARRIVES VIA: Ambulance INFORMANT: Patient ED PROVIDER(S): Wesly Willett MD CHIEF COMPLAINT: Fall, right hip pain. PLAN: Disposition: Admit MEDICAL DECISION MAKING: The patient is an 82-year-old woman with a past medical history of dementia who presents to the emergency department via EMS from [facility] where she resides in the memory care unit for evaluation of right hip pain after having a fall. Patient is a poor historian and reports that she was "going to the bank" when she fell. Of note, the patient was admitted to this facility from -08/02 after having a fall and suffered a mildly displaced left superior and inferior pubic ramus fracture which was considered to be nonoperative and PT OT was recommended. On my evaluation the patient is uncomfortable in no distress, afebrile stable vital signs. She has shortening of the right lower extremity and external rotation with distal PMS intact. EKG without overt acute ischemia. CXR negative for acute cardiopulmonary process per my personal preliminary review/interpretation. WBC, platelets within normal limits. H/H similar to prior range values. Chemistry without metabolic acidosis. Electrolytes and LFTs unremarkable. UA suspicious for infection with positive nitrites, WBCs and 4+ bacteria. IV ceftriaxone was ordered. Per my preliminary independent interpretation, plain films of the pelvis and right hip demonstrate right hip/femoral neck fracture. Patient's previous pubic ramus fractures are again seen. VENTURA Tabares hospitalist, to evaluate the patient for admission. Further management per admitting team. Triage Nursing notes reviewed and agree them. Prior/external medical records reviewed Vital Signs: reviewed Differential diagnosis: Fracture, subluxation, dislocation, contusion, ligamentous injury, neurovascular, compartment syndrome, rhabdomyolysis, as well as other pathologies. ER treatment provided: See below. Diagnostics interpreted by me: ECG: Sinus rhythm with PACs, 87 bpm, no overt ST ovation or depression, QTC 435 QRS 70 Cardiac Monitoring: An order for continuous cardiac monitoring was placed and demonstrated Sinus rhythm with PACs, 87 bpm. Laboratory studies: See below Imaging studies: See below Consultation(s): VENTURA Tabares hospitalist HPI: The patient is an 82-year-old woman with a past medical history of dementia who presents to the emergency department via EMS from [facility] where she resides in the memory care unit for evaluation of right hip pain after having a fall. Patient is a poor historian and reports that she was "going to the bank" when she fell. Of note, the patient was admitted to this facility from -08/02 after having a fall and suffered a mildly displaced left superior and inferior pubic ramus fracture which was considered to be nonoperative and PT OT was recommended. ROS: See above HPI for pertinent positives & negatives. A total of 10 systems reviewed and were otherwise negative. VITALS:See Below PHYSICAL EXAMINATION: GENERAL: Awake, alert, uncomfortable in no distress HENT: Normocephalic, atraumatic. Oropharynx unremarkable. EYES: Normal conjunctiva. Sclera non-icteric. NECK: Supple. No nuchal rigidity. FROM. No JVD. RESPIRATORY: Clear to auscultation. CARDIAC: Regular rate, normal rhythm. Extremities warm and well perfused. Pulses equal. ABDOMEN: Soft, non-distended. No tenderness to palpation. No rebound or guarding. No masses. RECTAL: Deferred. MUSCULOSKELETAL: Chest examination reveals no tenderness. The back is symmetrical on inspection without obvious abnormality. There is no CVA tenderness to palpation. Shortening of the right lower extremity and external rotation with distal PMS intact. LOWER EXTREMITIES: Calves are equal size bilaterally and non-tender. No edema. No discoloration. NEURO: Pleasantly confused. No focal sensory or motor deficits noted. SKIN: No rash or jaundice noted. 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 Feels Safe at Home: Yes Assistive Devices: None Allergies Allergies Allergy/AdvReac Type Severity Reaction Status Date / Time amoxicillin Allergy Unknown ON EMBASSY Verified 09/29/23 17:36 [facility] clarithromycin [From Biaxin] Allergy Unknown ON EMBASSY Verified 09/29/23 17:36 OF [facility] Penicillins Allergy Unknown ON EMBASSY Verified 09/29/23 17:36 [facility] Home Meds Home Medications Medication Instructions Recorded Confirmed acetaminophen 325 mg tablet 650 mg PO Q6H PRN Fever Or Pain 03/05/23 09/29/23 bisacodyl 10 mg rectal suppository 10 mg NV DAILY PRN Constipation 03/05/23 09/29/23 (Dulcolax (bisacodyl)) lidocaine 4 % topical patch 1 patch topical DAILY 03/05/23 09/29/23 magnesium hydroxide 2,400 mg/10 mL 30 ml PO DAILY PRN Constipation 03/05/23 09/29/23 oral suspension (Milk Of Magnesia Concentrated) sodium phosphates 19 gram-7 118 ml NV DAILY PRN Constipation 03/05/23 09/29/23 gram/118 mL enema (Fleet Enema) tramadol 50 mg tablet 50 mg PO Q8H 03/05/23 09/29/23 esomeprazole magnesium 40 mg 40 mg PO DAILYBB 06/25/23 09/29/23 capsule,delayed release fluticasone propionate 115 2 puff inhalation BID 07/30/23 09/29/23 mcg-salmeterol 21 mcg/actuation HFA inhaler (Advair HFA) levothyroxine 50 mcg tablet 50 mcg PO QAM 07/30/23 09/29/23 mineral oil-isopropyl myristat 1 applic topical BID 07/30/23 09/29/23 lotion mirtazapine 15 mg tablet 15 mg PO HS 07/30/23 09/29/23 montelukast 10 mg tablet 10 mg PO HS 07/30/23 09/29/23 paroxetine HCl 10 mg tablet (Paxil) 20 mg PO DAILY 07/30/23 09/29/23 risperidone 0.5 mg tablet 0.5 mg PO HS 07/30/23 09/29/23 (Risperdal) sennosides 8.6 mg-docusate sodium 2 tab-cap PO DAILY 07/30/23 09/29/23 50 mg tablet (Senna-S) mirtazapine 7.5 mg tablet 7.5 mg PO HS 09/29/23 09/29/23 multivitamin with minerals 1 tab PO DAILY 09/29/23 09/29/23 Results & Data (ED) Vital Signs Vital Signs - 24 hr 09/29/23 17:12 09/29/23 17:28 09/29/23 17:40 Temperature 36.7 C Temperature Source Oral Pulse Rate 90 89 90 Pulse Rate from SpO2 Sensor 90 Respiratory Rate 18 16 17 Respiratory Depth Normal Blood Pressure 162/97 H 149/81 H Blood Pressure Mean 118 103 Blood Pressure Position Lying Pulse Oximetry 100 99 99 Oxygen Delivery Method Room Air Room Air Sepsis Recent Fever Within 48 Hours No Sepsis New/Unexplained Change in Mental Status No Sepsis Action Taken by Nursing No Action Required 09/29/23 17:50 09/29/23 18:00 09/29/23 18:10 Temperature Temperature Source Pulse Rate 91 H 91 H 91 H Pulse Rate from SpO2 Sensor 92 H 90 91 H Respiratory Rate 20 17 19 Respiratory Depth Blood Pressure Blood Pressure Mean Blood Pressure Position Pulse Oximetry 99 99 99 Oxygen Delivery Method Sepsis Recent Fever Within 48 Hours Sepsis New/Unexplained Change in Mental Status Sepsis Action Taken by Nursing 09/29/23 18:20 09/29/23 18:30 09/29/23 18:40 Temperature Temperature Source Pulse Rate 93 H 121 H 96 H Pulse Rate from SpO2 Sensor 94 H 95 H 96 H Respiratory Rate 23 24 19 Respiratory Depth Blood Pressure Blood Pressure Mean Blood Pressure Position Pulse Oximetry 100 100 99 Oxygen Delivery Method Sepsis Recent Fever Within 48 Hours Sepsis New/Unexplained Change in Mental Status Sepsis Action Taken by Nursing 09/29/23 18:50 09/29/23 19:00 09/29/23 19:10 Temperature Temperature Source Pulse Rate 92 H 88 90 Pulse Rate from SpO2 Sensor 91 H 89 89 Respiratory Rate 18 22 19 Respiratory Depth Blood Pressure Blood Pressure Mean Blood Pressure Position Pulse Oximetry 99 97 97 Oxygen Delivery Method Sepsis Recent Fever Within 48 Hours Sepsis New/Unexplained Change in Mental Status Sepsis Action Taken by Nursing 09/29/23 19:20 09/29/23 19:30 09/29/23 19:40 Temperature Temperature Source Pulse Rate 87 86 86 Pulse Rate from SpO2 Sensor 89 86 87 Respiratory Rate 22 19 21 Respiratory Depth Blood Pressure Blood Pressure Mean Blood Pressure Position Pulse Oximetry 96 95 96 Oxygen Delivery Method Sepsis Recent Fever Within 48 Hours Sepsis New/Unexplained Change in Mental Status Sepsis Action Taken by Nursing 09/29/23 19:50 09/29/23 20:00 09/29/23 20:10 Temperature Temperature Source Pulse Rate 87 88 93 H Pulse Rate from SpO2 Sensor 87 89 Respiratory Rate 19 25 H 19 Respiratory Depth Blood Pressure Blood Pressure Mean Blood Pressure Position Pulse Oximetry 95 97 Oxygen Delivery Method Sepsis Recent Fever Within 48 Hours Sepsis New/Unexplained Change in Mental Status Sepsis Action Taken by Nursing 09/29/23 20:20 09/29/23 20:30 09/29/23 20:40 Temperature Temperature Source Pulse Rate 90 93 H 91 H Pulse Rate from SpO2 Sensor 92 H Respiratory Rate 19 28 H 17 Respiratory Depth Blood Pressure Blood Pressure Mean Blood Pressure Position Pulse Oximetry 95 Oxygen Delivery Method Sepsis Recent Fever Within 48 Hours Sepsis New/Unexplained Change in Mental Status Sepsis Action Taken by Nursing 09/29/23 20:50 09/29/23 20:59 09/29/23 21:00 Temperature Temperature Source Pulse Rate 91 H 100 H 87 Pulse Rate from SpO2 Sensor 91 H 88 Respiratory Rate 16 17 Respiratory Depth Blood Pressure Blood Pressure Mean Blood Pressure Position Pulse Oximetry 94 95 Oxygen Delivery Method Sepsis Recent Fever Within 48 Hours Sepsis New/Unexplained Change in Mental Status Sepsis Action Taken by Nursing 09/29/23 21:10 09/29/23 21:16 09/29/23 21:16 Temperature Temperature Source Pulse Rate 94 H 90 Pulse Rate from SpO2 Sensor 94 H 99 H Respiratory Rate 23 20 Respiratory Depth Blood Pressure 124/72 Blood Pressure Mean 80 Blood Pressure Position Pulse Oximetry 95 95 Oxygen Delivery Method Sepsis Recent Fever Within 48 Hours Sepsis New/Unexplained Change in Mental Status Sepsis Action Taken by Nursing Laboratory Data Attestation: I reviewed the patient's lab results. 09/29/23 17:28 09/29/23 17:28 Lab Results 09/29/23 09/29/23 09/29/23 Range/Units 17:28 18:34 20:11 WBC 7.73 (4.8-10.8) K/ul RBC 3.75 L (4.20-5.40) M/uL Hgb 10.7 L (12.0-16.0) g/dl Hct 33.8 L (37.0-47.0) % MCV 90.1 (80.0-100.0) fL MCH 28.5 (25.0-34.0) pg MCHC 31.7 L (32.0-36.0) g/dL RDW Std Deviation 51.6 H (36.4-46.3) fL RDW Coeff of [place] 15.8 H (11.5-14.5) % Plt Count 294 (130-400) K/uL MPV 10.7 (9.4-12.4) fL Immature Gran % (Auto) 0.4 % Neut % (Auto) 70.9 % Lymph % (Auto) 9.1 % [place] % (Auto) 11.4 % Eos % (Auto) 7.9 % Baso % (Auto) 0.3 % Neut # (Auto) 5.49 (1.40-6.50) K/uL Lymph # (Auto) 0.70 L (1.20-3.40) K/uL [place] # (Auto) 0.88 H (0.11-0.59) K/uL Eos # (Auto) 0.61 H (0.00-0.50) K/uL Baso # (Auto) 0.02 (0.00-0.20) K/uL Immature Gran # (Auto) 0.03 (0.01-0.20) K/uL PT 10.5 (9.0-12.0) Seconds INR 1.0 (0.9-1.1) APTT 26 (21-31) Seconds PTT Ratio 0.9 Sodium 136 (136-145) mmol/L Potassium 4.6 (3.5-5.1) mmol/L Chloride 102 (98-107) mmol/L Carbon Dioxide 28 (21-32) mmol/L Anion Gap 6 (3-11) BUN 34 H (6-23) mg/dl Creatinine 1.12 (0.6-1.2) mg/dl Est Cr Clr Drug Dosing 37.7 ml/min Est GFR ( Amer) 53.0 ml/min Est GFR (Non-Af Amer) 45.7 ml/min BUN/Creatinine Ratio 30.4 H (10-20) Glucose 111 H (70-99(Fasting)) mg/dl Calcium 8.5 L (8.6-10.3) mg/dl Total Bilirubin 0.3 (0.2-1.0) mg/dl AST 16 (13-39) U/L ALT 10 (7-52) U/L Alkaline Phosphatase 165 H (34-104) U/L Total Protein 6.5 (6.0-8.3) gm/dl Albumin 3.5 (3.4-5.0) gm/dl Globulin 3.0 (2.5-4.0) gm/dl Albumin/Globulin Ratio 1.2 (0.9-2) Urine Color Yellow Urine Appearance Cloudy A (Clear) Urine pH 7.5 (4.5-7.5) Ur Specific [place] 1.014 (1.000-1.030) Urine Protein Trace H (Negative) Urine Glucose (UA) Negative (Negative) Urine Ketones Negative (Negative) Urine Blood Trace H (Negative) Urine Nitrite Positive A (Negative) Urine Bilirubin Negative (Negative) Urine Urobilinogen Negative (Negative) Ur Leukocyte Esterase 3+ H (Negative) Urine WBC (Auto) >30 H (0-5) /hpf Urine RBC (Auto) 5-10 H (0-4) /hpf U Hyaline Cast (Auto) 0 (0-5) /lpf U Epithel Cells (Auto) 0-5 (0-5) /lpf Urine Bacteria (Auto) 4+ H (Negative) SARS-CoV-2, RNA, NAAT NEGATIVE (NEGATIVE) Administered Medications Sodium Chloride (Nss) 1,000 mls @ 75 mls/hr IV .[id number] [place] Stop: 09/30/23 07:19 Last Admin: 09/29/23 20:15 Dose: 75 mls/hr Documented By: KRISTA Discontinued Medications Acetaminophen (Ofirmev) 1,000 mg in 100 mls @ 400 mls/hr IV NOW STA Stop: 09/29/23 18:11 Last Infusion: 09/29/23 20:15 Dose: Infused Documented By: Admin: 09/29/23 18:36 Dose: 400 mls/hr Documented By: RIGO Ceftriaxone Sodium (Rocephin) 2,000 mg in 50 mls @ 100 mls/hr IV NOW STA Stop: 09/29/23 20:54 Last Infusion: 09/29/23 21:07 Dose: Infused Documented By: Admin: 09/29/23 20:35 Dose: 100 mls/hr Documented By: KRISTA Morphine Sulfate (Morphine Sulfate 4 Mg/Ml 1 Ml Carp\\Vial) 2 mg IV Q2H PRN PRN Reason: Severe Pain (Rating 7,8,9,10) Stop: 10/13/23 17:56 Last Admin: 09/29/23 20:32 Dose: 2 mg Documented By: Admin: 09/29/23 18:37 Dose: 2 mg Documented By: RIGO Imaging Data My Impression: Per my preliminary independent interpretation, plain films of the pelvis and right hip demonstrate right hip/femoral neck fracture. Patient's previous pubic ramus fractures are again seen. Discharge Plan Visit Data Chief Complaint: Hip Pain Stated Complaint: FALL, HIP PAIN ED Provider: Wesly Willett Discharge Problem: Closed fracture of right hip, Dementia, Acute UTI Patient Disposition: Admitted As Inpatient Discharge Instructions Interventions: ED Discharge Assessment Last Done: 09/29/23 21:52 Discharge Problem: Closed fracture of right hip Qualifiers: Encounter type: initial encounter Qualified Code(s): S72.001A - Fracture of unspecified part of neck of right femur, initial encounter for closed fracture Dementia Qualifiers: Dementia type: unspecified type Dementia severity: unspecified severity D ementia behavioral or psychological symptom: unspecified whether behavioral, psychotic, or mood disturbance or anxiety Qualified Code(s): F03.90 - Unspecified dementia, unspecified severity, without behavioral disturbance, psychotic disturbance, mood disturbance, and anxiety
[2023-09-29 18:30] LABS: Basophils # (auto) 0.02 K/uL (0.00-0.20); Basophils % (auto) 0.3 %; Eosinophils # (auto) 0.61 K/uL (0.00-0.50); Eosinophils % (auto) 7.9 %; Hematocrit (blood only) 33.8 % (37.0-47.0); Hemoglobin 10.7 g/dl (12.0-16.0); Immature Granulocytes # (auto) 0.03 K/uL (0.01-0.20); Immature Granulocytes % (auto) 0.4 %; Lymphocytes % (auto) 9.1 %; Mean Corpuscular Hemoglobin 28.5 pg (25.0-34.0); Mean Corpuscular Hgb Conc 31.7 g/dL (32.0-36.0); Mean Corpuscular Volume 90.1 fL (80.0-100.0); Mean Platelet Volume 10.7 fL (9.4-12.4); Monocytes # (auto) 0.88 K/uL (0.11-0.59); Monocytes % (auto) 11.4 %; Neutrophils # (auto) 5.49 K/uL (1.40-6.50); Neutrophils % (auto) 70.9 %; Platelet Count 294 K/uL (130-400); RDW Coefficient of Variation 15.8 % (11.5-14.5); RDW Standard Deviation 51.6 fL (36.4-46.3); Red Blood Count 3.75 M/uL (4.20-5.40); White Blood Count 7.73 K/ul (4.8-10.8)
[2023-09-29] MEDS: ACETAMINOPHEN 1,000 MG/100 ML VIAL IV STA (18:36)
[2023-09-29] MEDS: MoRPHine SULFATE 4 MG/ML 1 ML CARP\\VIAL IV PRN (18:37)
[2023-09-29 18:45] LABS: Albumin Globulin Ratio 1.2 (0.9-2); Albumin Level 3.5 gm/dl (3.4-5.0); BUN Creatinine Ratio 30.4 (10-20); Bilirubin,Total 0.3 mg/dl (0.2-1.0); Calcium 8.5 mg/dl (8.6-10.3); Creatinine Clr Calc Pharmacy 37.7 ml/min; Est GFR (Non-African American) 45.7 ml/min; Potassium 4.6 mmol/L (3.5-5.1); Total Protein 6.5 gm/dl (6.0-8.3)
[2023-09-29 18:46] LABS: Partial Thromboplastin Ratio 0.9; Partial Thromboplastin Time 26 Seconds (21-31); Prothrombin Time 10.5 Seconds (9.0-12.0)
[2023-09-29 19:06] LABS: Appearance Urine Cloudy (Clear); Bacteria Urine Automated 4+ (Negative); Bilirubin Urine Negative (Negative); Blood Urine Trace (Negative); Cast Urine Automated 0 /lpf (0-5); Color Urine Yellow; Epithelial Cell Urine Auto 0-5 /lpf (0-5); Glucose Urine UA Negative (Negative); Ketones Urine Negative (Negative); Leukocyte Esterase Urine 3+ (Negative); Nitrite Urine Positive (Negative); Specific Gravity Urine 1.014 (1.000-1.030); Urobilinogen Urine Negative (Negative); WBC Urine Automated >30 /hpf (0-5); pH Urine 7.5 (4.5-7.5)
[2023-09-29 19:07] LABS: Protein Urine Trace (Negative)
[2023-09-29] MEDS: SODIUM CHLORIDE 0.9% 1,000 ML IV SCH (20:15)
[2023-09-29] MEDS: cefTRIAXone SODIUM 2,000 MG/50 ML BAG IV STA (20:35)
--- NOTE | 2023-09-29 21:47 | History & Physical Report ---
Date of Service September 29, 2023 Assessment & Plan (1) Closed right femoral fracture: (2) Fall: (3) Dementia: (4) Essential hypertension: (5) Hypothyroidism: (6) GERD (gastroesophageal reflux disease): Plan 82 yo female PMHx dementia, HTN, hypothyroidism, GERD admitted for fall found to have R femoral fracture and UTI #R Femoral Fracture Pain control tylenol, morphine Ortho consult #UTI UA suggestive of UTI UCx collected, await speciation and sensitivities Ceftriaxone 2g q24h #Fall History of multiple falls Fall precautions PT/OT ordered #Dementia Pt with declining mental status Lives in [facility] dementia unit Continue mirtazapine, risperidone #HTN Not on any chronic controller medications #Hypothyroidism Continue levothyroxine #GERD continue esomeprazole Patient POAs are her daughters Perlita Brunilda FENGI: NPO at midnight Code status: Full DVT prophylaxis: SCDs Isolation: none Disposition: med/surg History of Present Illness Primary Care Provider: Jadiel Palacios 82 yo female PMHx Dementia, GERD, HTN, hypothyroidism admitted from [facility] after a fall earlier today. Patient with baseline dementia, history limited due to this. Admitted with complaint of R hip pain. XR hip shows intertrochanteric, lesser trochanter fracture of R femur. UA demonstrates UTI. Pt daughter contacted (Brunilda) states mother would wish to be full code at this time. She and other sister Perlita are POA. Aware they may revisit code status at any time. Also states pt has high sensitivity to pain medication and anesthesia. Patient may get agitated. Pt denies HOLMAN, CP, SOB, N/V/D, dysuria. Endorses hip pain. VSS Labs: UA cloudy, +nitrite, 3+ leuk esterase, 4+ bacteria Allergies Allergy/AdvReac Type Severity Reaction Status Date / Time amoxicillin Allergy Unknown ON EMBASSY Verified 09/29/23 17:36 OF [facility] MED LIST clarithromycin [From Biaxin] Allergy Unknown ON EMBASSY Verified 09/29/23 17:36 OF [facility] MED LIST Penicillins Allergy Unknown ON EMBASSY Verified 09/29/23 17:36 OF [facility] MED LIST Home Medications Medication Instructions Recorded Confirmed Type acetaminophen 325 mg tablet 650 mg PO Q6H PRN Fever Or Pain 03/05/23 09/29/23 History bisacodyl 10 mg rectal suppository 10 mg W[place] DAILY PRN Constipation 03/05/23 09/29/23 History (Dulcolax (bisacodyl)) lidocaine 4 % topical patch 1 patch topical DAILY 03/05/23 09/29/23 History magnesium hydroxide 2,400 mg/10 mL 30 ml PO DAILY PRN Constipation 03/05/23 09/29/23 History oral suspension (Milk Of Magnesia Concentrated) sodium phosphates 19 gram-7 118 ml W[place] DAILY PRN Constipation 03/05/23 09/29/23 History gram/118 mL enema (Fleet Enema) tramadol 50 mg tablet 50 mg PO Q8H 03/05/23 09/29/23 History esomeprazole magnesium 40 mg 40 mg PO DAILYBB 06/25/23 09/29/23 History capsule,delayed release fluticasone propionate 115 2 puff inhalation BID 07/30/23 09/29/23 History mcg-salmeterol 21 mcg/actuation HFA inhaler (Advair HFA) levothyroxine 50 mcg tablet 50 mcg PO QAM 07/30/23 09/29/23 History mineral oil-isopropyl myristat 1 applic topical BID 07/30/23 09/29/23 History lotion mirtazapine 15 mg tablet 15 mg PO HS 07/30/23 09/29/23 History montelukast 10 mg tablet 10 mg PO HS 07/30/23 09/29/23 History paroxetine HCl 10 mg tablet (Paxil) 20 mg PO DAILY 07/30/23 09/29/23 History risperidone 0.5 mg tablet 0.5 mg PO HS 07/30/23 09/29/23 History (Risperdal) sennosides 8.6 mg-docusate sodium 2 tab-cap PO DAILY 07/30/23 09/29/23 History 50 mg tablet (Senna-S) mirtazapine 7.5 mg tablet 7.5 mg PO HS 09/29/23 09/29/23 History multivitamin with minerals 1 tab PO DAILY 09/29/23 09/29/23 History Past Med/Surg History Medical History Constipation Hypothyroidism History of falling Essential hypertension 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 GERD (gastroesophageal reflux disease) Dysphagia, oral phase Depression Anxiety Dementia Dementia Social History Smoking Status: Never smoker Tobacco Type: Smokeless Tobacco (Dip or Chew) Second Hand Exposure: No; Hx Alcohol Use: No Hx Substance Use: No Preferred Language: Romanian Communication Ability: Effective Breakfast Server Required: No Beliefs That Will Affect Care: None Current Living Situation: Personal Care Facility Current Living Situation Comment: [facility] Other Information That Helps Us Care for You: No Feels Safe at Home: Yes Safety Concerns: Feels Safe At This Time Assistive Devices: None Review of Systems Review of Systems: reviewed, per HPI Physical Exam Physical Exam: Constitutional: resting in bed in minor discomfort, oriented to person only, NAD HEENT: NCAT, no conjunctival injection CV: regular rhythm, no murmur appreciated, extremities well-perfused, no LE edema Resp: CTABL, no wheezes/rales/rhonchi appreciated, no increased work of breathing GI: soft, nondistended, nontender MSK: R leg shortening, TTP lateral aspect of proximal R thigh Skin: warm, dry, no rash appreciated Neuro: alert, oriented to person only, no focal neurologic deficit appreciated Results & Data Results & Data Vital Signs (Past 12 Hours) Vital Signs Temp Pulse Resp BP Pulse Ox O2 Del Method 09/29/23 17:28 89 16 149/81 H 99 Room Air 09/29/23 17:12 36.7 C 90 18 162/97 H 100 Room Air Code Status & VTE Plan VTE Prophylaxis Plan VTE Prophylaxis will be ordered: Yes Supervising Physician Co-Signing Physician Notes Attending addendum: I have physically seen this patient, have supervised the medical residents activities, and agree with the H&P unless as otherwise noted. Assessment and Plan: Closed right hip fracture- N.p.o. after midnight Geriatric hip fracture order set Acetaminophen for mild pain or fever Morphine sulfate IV as noted for moderate to severe pain Urinary tract infection- Follow urine culture and sensitivity Empiric ceftriaxone 2 g IV every 24 hours History of multiple falls- Fall precautions PT/OT to address post surgery and general following issues Dementia- Resume mirtazapine and risperidone as able postoperatively Zyprexa 5 mg IM every 6 hours as needed in the interim Remaining orders and notations as noted (2) Fall Encounter type: initial encounter Qualified Code(s): W19.XXXA - Unspecified fall, initial encounter
[2023-09-29] MEDS ORDERED: SOD PHOSPHATE/SOD BIPHOSPHATE ENEMA 132 ML BTL PR PRN (21:51)
[2023-09-29] MEDS ORDERED: bisacodyL 10 MG SUPP PR PRN (21:51)
[2023-09-29] MEDS ORDERED: ONDANSETRON INJ 2 MG/ML 2 ML VIAL IV PRN (21:51)
[2023-09-29] MEDS ORDERED: POLYETHYLENE (MIRALAX) 17 GM PACK PO PRN (21:51)
[2023-09-29] MEDS: traMADol HCL 50 MG TABLET PO SCH (23:54)
[2023-09-30] MEDS: MoRPHine SULFATE 2 MG/ML CARP IV PRN ×2 (02:10→18:20)
[2023-09-30] MEDS: LEVOTHYROXINE SODIUM 50 MCG TABLET PO SCH (06:20)
[2023-09-30] MEDS: PANTOprazole 40 MG TAB PO SCH (06:20)
[2023-09-30 06:48] LABS: Albumin Level 3.4 gm/dl (3.4-5.0); Bilirubin,Total 0.4 mg/dl (0.2-1.0); Calcium 8.3 mg/dl (8.6-10.3); Magnesium 1.9 mg/dl (1.7-2.4); Potassium 4.3 mmol/L (3.5-5.1)
[2023-09-30 06:54] LABS: Albumin Globulin Ratio 1.4 (0.9-2); BUN Creatinine Ratio 33.3 (10-20); Basophils # (auto) 0.02 K/uL (0.00-0.20); Basophils % (auto) 0.2 %; Creatinine Clr Calc Pharmacy 46.9 ml/min; Eosinophils # (auto) 0.07 K/uL (0.00-0.50); Eosinophils % (auto) 0.7 %; Est GFR (Non-African American) 59.5 ml/min; Globulin 2.5 gm/dl (2.5-4.0); Hematocrit (blood only) 32.1 % (37.0-47.0); Immature Granulocytes # (auto) 0.04 K/uL (0.01-0.20); Immature Granulocytes % (auto) 0.4 %; Lymphocytes # (auto) 0.64 K/uL (1.20-3.40); Lymphocytes % (auto) 6.5 %; Mean Corpuscular Hemoglobin 28.3 pg (25.0-34.0); Mean Corpuscular Hgb Conc 31.2 g/dL (32.0-36.0); Mean Corpuscular Volume 90.9 fL (80.0-100.0); Monocytes # (auto) 0.86 K/uL (0.11-0.59); Monocytes % (auto) 8.8 %; Neutrophils # (auto) 8.18 K/uL (1.40-6.50); Neutrophils % (auto) 83.4 %; Phosphorus 3.4 mg/dl (2.5-4.9); Platelet Count 260 K/uL (130-400); RDW Coefficient of Variation 15.7 % (11.5-14.5); RDW Standard Deviation 51.9 fL (36.4-46.3); Red Blood Count 3.53 M/uL (4.20-5.40); Total Protein 5.9 gm/dl (6.0-8.3); White Blood Count 9.81 K/ul (4.8-10.8)
--- NOTE | 2023-09-30 07:21 | XRay Report ---
XR chest 1V portable HISTORY: 82 years-old Female preop preoperative exam. No acute chest complaints COMPARISON: 07/30/2023 TECHNIQUE: AP view of the chest FINDINGS: FINDINGS: Cardiac silhouette is mildly enlarged. There is no pneumothorax, pleural effusion or airspa ce consolidation. Chronic interstitial coarsening. Bones of the chest appear grossly intact. Cholecys tectomy. Degenerative changes of the shoulders and spine. IMPRESSION: Cardiomegaly without acute process. ACT 112: Negative or not required by law. The above report was generated using voice recognition software. It may contain grammatical, syntax o r spelling errors. Electronically signed by: Ezra Recinos M.D. 09/30/2023 7:20 AM
--- NOTE | 2023-09-30 07:34 | XRay Report ---
XR hip RT 2V w pelvis HISTORY: 82 years-old Female pain fall acute right hip pain status post fall COMPARISON: 07/30/2023 TECHNIQUE: AP view the pelvis with 2 views of the right hip FINDINGS: Moderate osteoarthritis of the hips. Chronic appearing left pelvic ring fractures unchanged alignment . There is an acute, comminuted and impacted intertrochanteric right femoral fracture with mild super olateral angulation. Moderate associated soft tissue swelling. A few of the fracture fragments are di splaced a few millimeters. IMPRESSION: 1. Acute, comminuted and impacted intertrochanteric right femoral fracture. 2. Unchanged alignment of the chronic left pelvic ring fractures. ACT 112: Negative or not required by law. The above report was generated using voice recognition software. It may contain grammatical, syntax o r spelling errors. Electronically signed by: Ezra Recinos M.D. 09/30/2023 7:32 AM
--- NOTE | 2023-09-30 08:01 | Electrocardiogram Report ---
Test Reason : Blood Pressure : / mmHG Vent. Rate : 087 BPM Atrial Rate : 087 BPM P-R Int : 142 ms QRS Dur : 070 ms QT Int : 362 ms P-R-T Axes : 083 027 051 degrees QTc Int : 435 ms Sinus rhythm with Premature atrial complexes Otherwise normal ECG When compared with ECG of 25-JUN-2023 16:51, Premature atrial complexes are now Present Confirmed by Hardeep Romero ([id number]) on 09/30/2023 8:00:50 AM Referred By: [facility] Confirmed By:Hardeep Romero
[2023-09-30] MEDS: PARoxetine HCL 20 MG TAB PO SCH (08:34)
[2023-09-30] MEDS: FLUTICASONE/VILANTEROL 100/25MCG 14 PUFFS/INHALER INH SCH (08:34)
[2023-09-30] MEDS: EUCERIN CR 120 GM JAR EXT SCH (08:35)
[2023-09-30] MEDS: DOCUSATE SODIUM/SENNA 50/8.6MG TAB PO SCH (08:35)
--- NOTE | 2023-09-30 10:51 | Orthopedic Consultation ---
Date of Service September 30, 2023 Assessment & Plan (1) Closed fracture of right hip: 1. Plan on surgical fixation of the right hip tomorrow, 10/01/23, by Dr. Abdon Springer. Current plan is long IM nail of the right hip. 2. Will advance diet today but will be NPO after midnight 3. Patient's POA will be contacted today for surgical consent 4. Continue with current pain control and DVT prophylaxis until surgery tomorrow I, Dr. Abdon Springer, saw and examined the patient at bedside. I agree with the above plan. We will plan for surgical fixation of her hip tomorrow. She understands the risk, benefits, and alternatives to procedures like to proceed. Questions were answered at bedside. Consents were signed. The decision was made for surgery. History of Present Illness Reason for Consultation: . Requesting Physician: . Attending Physician: Dirk Curry MD Patient is an 82 y/o female admitted to [facility] 2 days ago after a fall. She is a resident at [facility]. PMH of hypothyroidism and dementia. Xrays of right hip show a displaced right intertrochanteric hip fracture. Patient admitted for pain control and pending surgical fixation of hip. Allergies Allergy/AdvReac Type Severity Reaction Status Date / Time amoxicillin Allergy Unknown ON EMBASSY Verified 09/29/23 17:[address] [facility] MED LIST clarithromycin [From Biaxin] Allergy Unknown ON EMBASSY Verified 09/29/23 17:[address] [facility] MED LIST Penicillins Allergy Unknown ON EMBASSY Verified 09/29/23 17:[address] [facility] MED LIST Home Medications Medication Instructions Recorded Confirmed Type acetaminophen 325 mg tablet 650 mg PO Q6H PRN Fever Or Pain 03/05/23 09/29/23 History bisacodyl 10 mg rectal suppository 10 mg [place] DAILY PRN Constipation 03/05/23 09/29/23 History (Dulcolax (bisacodyl)) lidocaine 4 % topical patch 1 patch topical DAILY 03/05/23 09/29/23 History magnesium hydroxide 2,400 mg/10 mL 30 ml PO DAILY PRN Constipation 03/05/23 09/29/23 History oral suspension (Milk Of Magnesia Concentrated) sodium phosphates 19 gram-7 118 ml MO DAILY PRN Constipation 03/05/23 09/29/23 History gram/118 mL enema (Fleet Enema) tramadol 50 mg tablet 50 mg PO Q8H 03/05/23 09/29/23 History esomeprazole magnesium 40 mg 40 mg PO DAILYBB 06/25/23 09/29/23 History capsule,delayed release fluticasone propionate 115 2 puff inhalation BID 07/30/23 09/29/23 History mcg-salmeterol 21 mcg/actuation HFA inhaler (Advair HFA) levothyroxine 50 mcg tablet 50 mcg PO QAM 07/30/23 09/29/23 History mineral oil-isopropyl myristat 1 applic topical BID 07/30/23 09/29/23 History lotion mirtazapine 15 mg tablet 15 mg PO HS 07/30/23 09/29/23 History montelukast 10 mg tablet 10 mg PO HS 07/30/23 09/29/23 History paroxetine HCl 10 mg tablet (Paxil) 20 mg PO DAILY 07/30/23 09/29/23 History risperidone 0.5 mg tablet 0.5 mg PO HS 07/30/23 09/29/23 History (Risperdal) sennosides 8.6 mg-docusate sodium 2 tab-cap PO DAILY 07/30/23 09/29/23 History 50 mg tablet (Senna-S) mirtazapine 7.5 mg tablet 7.5 mg PO HS 09/29/23 09/29/23 History multivitamin with minerals 1 tab PO DAILY 09/29/23 09/29/23 History Past Med/Surg History Medical History Constipation Hypothyroidism History of falling Essential hypertension 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 GERD (gastroesophageal reflux disease) Dysphagia, oral phase Depression Anxiety Dementia Dementia Social History Smoking Status: Never smoker Tobacco Type: Smokeless Tobacco (Dip or Chew) Second Hand Exposure: No; Hx Alcohol Use: No Hx Substance Use: No Preferred Language: Salvadorean Communication Ability: Effective Supervisor Facepiece Line Required: No Beliefs That Will Affect Care: None Current Living Situation: Personal Care Facility Current Living Situation Comment: [facility] Other Information That Helps Us Care for You: No Feels Safe at Home: Yes Safety Concerns: Feels Safe At This Time Assistive Devices: None Review of Systems All systems reviewed & are unremarkable except as noted in HPI & below. Physical Exam Patient resting comfortably in bed. Responsive to questions but confused with answers. RLE is shortened and externally rotated. Pain with manual log roll of RLE. Skin is intact at the hip. Neurovascularly intact RLE Results & Data Results & Data Laboratory Results . Diagnostic Findings . PG Care Time/CCT Total # of Minutes Spent Total Time Spent with Patient: Total time spent is greater than 50% in coordination of care (as documented) at patient's floor/unit and/or counseling patient: Coding Level of Care Code 48505 IN/OBS CONSULT LVL 3,45M Diagnoses Closed fracture of right hip S72.001A Encounter type: initial encounter (1) Closed fracture of right hip Encounter type: initial encounter Qualified Code(s): S72.001A - Fracture of unspecified part of neck of right femur, initial encounter for closed fracture
[2023-09-30] MEDS: CEROVITE ADV FORMULA TAB PO SCH (13:58)
[2023-09-30] MEDS: cefTRIAXone SODIUM 2,000 MG in DEXTROSE 5 % MINI-B 50 ML IV SCH (19:16)
[2023-09-30] MEDS: MIRTAZAPINE TAB 15 MG TAB PO SCH (19:57)
[2023-09-30] MEDS: MONTELUKAST SODIUM 10 MG TABLET PO SCH (19:58)
[2023-09-30] MEDS: risperiDONE 0.5 MG TABLET PO SCH (19:59)
[2023-09-30] MEDS ORDERED: MIRTAZAPINE TAB 15 MG TAB PO SCH (21:00)
--- NOTE | 2023-09-30 21:35 | Billing Data ---
Date of Service September 30, 2023 Coding Level of Care Code 10573 INT INP/OBS CARE
--- NOTE | 2023-09-30 22:07 | Hospitalist Progress Note ---
Date of Service September 30, 2023 Assessment & Plan (1) Closed right femoral fracture: (2) Fall: (3) Dementia: (4) Essential hypertension: (5) Hypothyroidism: (6) GERD (gastroesophageal reflux disease): Plan 82 yo female PMHx dementia, HTN, hypothyroidism, GERD admitted for fall found to have R femoral fracture and UTI #R Femoral Fracture Pain control tylenol, morphine Ortho consult Anticipate repair on 10/01 #UTI UA suggestive of UTI UCx collected, await speciation and sensitivities Ceftriaxone 2g q24h #Fall History of multiple falls Fall precautions PT/OT ordered #Dementia Pt with declining mental status Lives in [facility] dementia unit Continue mirtazapine, risperidone #HTN Not on any chronic controller medications #Hypothyroidism Continue levothyroxine #GERD continue esomeprazole Patient POAs are her daughters Perlita Brunilda FENGI: NPO at midnight Code status: Full DVT prophylaxis: SCDs Isolation: none Disposition: med/surg Admission and Anticipated Discharge Date Admission Date: September 29, 2023 Subjective Patient is resting comfortably. Poor historian. Review of Systems Review of Systems: All systems reviewed & are unremarkable except as noted in HPI & below Physical Exam Physical Exam: Constitutional: NAD HEENT: NCAT, no conjunctival injection CV: regular rhythm, Resp: CTABL GI: soft, nondistended, nontender MSK: R leg shortening, TTP lateral aspect of proximal R thigh Skin: warm, dry, no rash appreciated Neuro: alert, oriented to person only, no focal neurologic deficit appreciated Results & Data Results & Data Vital Signs (Past 12 Hours) Vital Signs Temp Pulse Resp BP Pulse Ox O2 Del Method 09/30/23 19:49 37.1 C 85 16 130/68 97 Room Air 09/30/23 14:12 36.9 C 81 18 151/81 H 97 Room Air PG Care Time/CCT Total # of Minutes Spent Total Time Spent with Patient: Total time spent is greater than 50% in coordination of care (as documented) at patient's floor/unit and/or counseling patient: Coding Level of Care Code 35662 SUB INP/OBS CARE 2/35MIN Diagnoses Closed right femoral fracture S72.91XA Fall W19.XXXA Encounter type: initial encounter Dementia F03.90 Essential hypertension I10 Hypothyroidism E03.9 GERD (gastroesophageal reflux disease) K21.9 (2) Fall Encounter type: initial encounter Qualified Code(s): W19.XXXA - Unspecified fall, initial encounter
[2023-10-01 06:20] LABS: Hematocrit (blood only) 29.1 % (37.0-47.0); Hemoglobin 9.2 g/dl (12.0-16.0); Mean Corpuscular Hemoglobin 28.5 pg (25.0-34.0); Mean Corpuscular Hgb Conc 31.6 g/dL (32.0-36.0); Mean Corpuscular Volume 90.1 fL (80.0-100.0); Mean Platelet Volume 10.9 fL (9.4-12.4); Platelet Count 208 K/uL (130-400); RDW Coefficient of Variation 15.9 % (11.5-14.5); RDW Standard Deviation 52.8 fL (36.4-46.3); Red Blood Count 3.23 M/uL (4.20-5.40)
[2023-10-01] MEDS ORDERED: BUPIVACAINE 0.5 % 5 MG/1 ML PF 10ML VIAL ONE (06:29)
[2023-10-01 06:36] LABS: BUN Creatinine Ratio 26.5 (10-20); Calcium 8.1 mg/dl (8.6-10.3); Creatinine Clr Calc Pharmacy 50.8 ml/min; Est GFR (African American) 76.1 ml/min; Est GFR (Non-African American) 65.7 ml/min; Potassium 3.8 mmol/L (3.5-5.1)
[2023-10-01] MEDS ORDERED: fentaNYL citrate PF 100 MCG/2 ML VIAL ONE (09:28)
[2023-10-01] MEDS ORDERED: ONDANSETRON INJ 2 MG/ML 2 ML VIAL ONE (09:28)
[2023-10-01] MEDS ORDERED: PROPOFOL IV EMULSION 10 MG/ML 20 ML VIAL IV ONE (09:28)
--- NOTE | 2023-10-01 10:06 | History & Physical Bridge Note ---
Date of Service October 01, 2023 History & Physical Bridge Note I have examined the patient, reviewed the History & Physical and in the interval since the performance of the History & Physical I have noted the following changes of clinical significance: no changes noted
--- NOTE | 2023-10-01 11:01 | Anesthesiology Consultation ---
Date of Service October 01, 2023 Assessment & Plan (1) Encounter for pre-operative examination: Chart Review Chart Review: Acceptable Risk for Surgery and Patient NOT seen in Pre Admission Testing Consults Requested none History Surgery Operation Date: 10/01/23 11:30 Proposed Procedures p Right Hip IM Nail - Abdon Springer DO Height/Weight Height: 5 ft 7 in Weight: 63.2 kg Allergies Allergy/AdvReac Type Severity Reaction Status Date / Time amoxicillin Allergy Unknown ON EMBASSY Verified 09/29/23 17:36 OF [facility] MED LIST clarithromycin [From Biaxin] Allergy Unknown ON EMBASSY Verified 09/29/23 17:36 OF [facility] Penicillins Allergy Unknown ON EMBASSY Verified 09/29/23 17:36 [facility] Medications Home Medications Medication Instructions Recorded Confirmed Last Taken acetaminophen 325 mg tablet 650 mg PO Q6H PRN Fever Or Pain 03/05/23 09/29/23 Unknown bisacodyl 10 mg rectal suppository 10 mg MO DAILY PRN Constipation 03/05/23 09/29/23 Unknown (Dulcolax (bisacodyl)) lidocaine 4 % topical patch 1 patch topical DAILY 03/05/23 09/29/23 09/29/23 magnesium hydroxide 2,400 mg/10 mL 30 ml PO DAILY PRN Constipation 03/05/23 09/29/23 Unknown oral suspension (Milk Of Magnesia Concentrated) sodium phosphates 19 gram-7 118 ml MO DAILY PRN Constipation 03/05/23 09/29/23 Unknown gram/118 mL enema (Fleet Enema) tramadol 50 mg tablet 50 mg PO Q8H 03/05/23 09/29/23 09/29/23 esomeprazole magnesium 40 mg 40 mg PO DAILYBB 06/25/23 09/29/23 09/29/23 capsule,delayed release fluticasone propionate 115 2 puff inhalation BID 07/30/23 09/29/23 09/29/23 08:00 mcg-salmeterol 21 mcg/actuation HFA inhaler (Advair HFA) levothyroxine 50 mcg tablet 50 mcg PO QAM 07/30/23 09/29/23 09/29/23 mineral oil-isopropyl myristat 1 applic topical BID 07/30/23 09/29/23 09/29/23 08:00 lotion mirtazapine 15 mg tablet 15 mg PO HS 07/30/23 09/29/23 09/28/23 montelukast 10 mg tablet 10 mg PO HS 07/30/23 09/29/23 09/28/23 paroxetine HCl 10 mg tablet (Paxil) 20 mg PO DAILY 07/30/23 09/29/23 09/29/23 risperidone 0.5 mg tablet 0.5 mg PO HS 07/30/23 09/29/23 09/28/23 (Risperdal) sennosides 8.6 mg-docusate sodium 2 tab-cap PO DAILY 07/30/23 09/29/23 09/29/23 50 mg tablet (Senna-S) mirtazapine 7.5 mg tablet 7.5 mg PO HS 09/29/23 09/29/23 09/28/23 multivitamin with minerals 1 tab PO DAILY 09/29/23 09/29/23 09/29/23 Active Medications Generic Name Dose Route Start Last Admin Trade Name Wil PRN Reason Stop Dose Admin Fluticasone/Vilanterol 1 puffs 09/30/23 09:00 09/30/23 08:34 Fluticasone/Vilanterol 100/25mcg 14 Puffs/Inhaler INH 10/30/23 08:59 1 puffs DAILY BELGICA Administration Ceftriaxone Sodium 2,000 mg/ 50 mls @ 100 mls/hr 09/30/23 20:00 09/30/23 20:37 Dextrose IV 10/05/23 19:59 Infused Q24H BELGICA Infusion Protocol Levothyroxine Sodium 50 mcg 09/30/23 06:30 10/01/23 05:55 Levothyroxine Sodium 50 Mcg Tablet PO 10/30/23 06:29 Not Given DAILYBB BELGICA Mirtazapine 22.5 mg 09/30/23 21:00 09/30/23 19:57 Mirtazapine Tab 15 Mg Tab PO 10/30/23 20:59 22.5 mg HS BELGICA Administration Montelukast Sodium 10 mg 09/30/23 21:00 09/30/23 19:58 Montelukast Sodium 10 Mg Tablet PO 10/30/23 20:59 10 mg HS BELGICA Administration Morphine Sulfate 1 mg 09/29/23 17:57 09/30/23 18:20 Morphine Sulfate 2 Mg/Ml Carp IV 10/13/23 17:56 1 mg Q2H PRN Administration Moderate Pain (Rating 3,4,5,6) Morphine Sulfate 2 mg 09/29/23 22:15 09/30/23 02:10 Morphine Sulfate 2 Mg/Ml Carp IV 10/13/23 22:14 2 mg Q2H PRN Administration Severe Pain (Rating 7,8,9,10) Multi-Ingredient Cream 1 appln 09/30/23 09:00 09/30/23 19:58 Eucerin Cr 120 Gm Jar EXT 10/30/23 08:59 1 appln BID BELGICA Administration Multivitamins/Minerals 1 tab 09/30/23 09:00 09/30/23 13:58 Cerovite Adv Formula Tab PO 10/30/23 08:59 1 tab DAILY BELGICA Administration Pantoprazole Sodium 40 mg 09/30/23 06:30 10/01/23 05:55 Pantoprazole 40 Mg Tab PO 10/30/23 06:29 Not Given DAILYBB BELGICA Paroxetine HCl 20 mg 09/30/23 09:00 09/30/23 08:34 Paroxetine Hcl 20 Mg Tab PO 10/30/23 08:59 20 mg DAILY BELGICA Administration Risperidone 0.5 mg 09/30/23 21:00 09/30/23 19:59 Risperidone 0.5 Mg Tablet PO 10/30/23 20:59 0.5 mg HS BELGICA Administration Senna/Docusate Sodium 2 tab 09/30/23 09:00 09/30/23 08:35 Docusate Sodium/Senna 50/8.6mg Tab PO 10/30/23 08:59 2 tab DAILY BELGICA Administration Tramadol HCl 50 mg 09/29/23 22:00 10/01/23 05:52 Tramadol Hcl 50 Mg Tablet PO 10/29/23 21:59 Not Given Q8H BELGICA NPO Date Last Intake of Fluids: 09/30/23 Last Intake of Fluids Comment: before MN per RN Date Last Intake of Solids: 09/30/23 Last Intake of Solids Comment: Before MN per RN Past Medical History Medical History Constipation Hypothyroidism History of falling Essential hypertension 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 GERD (gastroesophageal reflux disease) Dysphagia, oral phase Depression Anxiety Dementia Dementia Social History Smoking Status: Never smoker Hx Alcohol Use: No Hx Substance Use: No Physical Exam Vital Signs Last Vital Signs Temp 99.5 F 10/01/23 10:28 Pulse 89 10/01/23 10:28 Resp 20 10/01/23 10:28 BP 128/73 10/01/23 10:28 Pulse Ox 96 10/01/23 10:28 O2 Del Method Room Air 10/01/23 10:28 Testing Laboratory Results 10/01/23 05:40 10/01/23 05:40 PT 10.5 Seconds (9.0-12.0) 09/29/23 17:28 INR 1.0 (0.9-1.1) 09/29/23 17: APTT 26 Seconds (21-31) 09/29/23 17:28 Urine Color Yellow 09/29/23 18:34 Urine Appearance Cloudy (Clear) A 09/29/23 18:34 Urine pH 7.5 (4.5-7.5) 09/29/23 18:34 Ur Specific [place] 1.014 (1.000-1.030) 09/29/23 18:34 Urine Protein Trace (Negative) H 09/29/23 18:34 Urine Glucose (UA) Negative (Negative) 09/29/23 18:34 Urine Ketones Negative (Negative) 09/29/23 18:34 Urine Nitrite Positive (Negative) A 09/29/23 18:34 Ur Leukocyte Esterase 3+ (Negative) H 09/29/23 18:34 Urine WBC (Auto) >30 /hpf (0-5) H 09/29/23 18:34 Urine RBC (Auto) 5-10 /hpf (0-4) H 09/29/23 18:34 U Hyaline Cast (Auto) 0 /lpf (0-5) 09/29/23 18:34 U Epithel Cells (Auto) 0-5 /lpf (0-5) 09/29/23 18:34 Urine Bacteria (Auto) 4+ (Negative) H 09/29/23 18:34 Blood Type O Positive 10/01/23 05:40 Antibody Screen NEGATIVE 10/01/23 05:40 09/29/23 18:34 Urine Culture - Preliminary Urine,Clean Catch Escherichia coli Electrocardiogram Date: 09/29/23 Findings: + NSR @ (with PACS)
[2023-10-01] MEDS ORDERED: ATROPINE SULFATE 0.1 MG/ML 10ML SYR IV PRN (11:02)
[2023-10-01] MEDS ORDERED: ONDANSETRON INJ 2 MG/ML 2 ML VIAL IV PRN (11:02)
[2023-10-01] MEDS ORDERED: ePHEDrine sulfate 50 MG/ML AMP IV PRN (11:02)
[2023-10-01] MEDS ORDERED: fentaNYL citrate PF 100 MCG/2 ML VIAL IV PRN (11:02)
[2023-10-01] MEDS: LACTATED RINGER'S 1,000 ML IV SCH ×2 (11:17→13:35)
[2023-10-01] MEDS ORDERED: PHENYLEPHRINE 100MCG/ML 10ML SYR IV ONE (12:26)
--- NOTE | 2023-10-01 12:43 | Operative Report ---
PG Post Operative Report Pre & Post Diagnosis Operation Date: 10/01/23 11:30 Pre-Op Diagnosis: Displaced right intertrochanteric hip fracture Post-Op Diagnosis: Displaced right intertrochanteric hip fracture I identified the patient and participated in the time-out.: Yes Procedure Operation Date: 10/01/23 11:30 Actual Procedures p intramedullary nail fixation of the right hip (Right) - Abdon Springer DO Surgeon Abdon Springer DO Polymer Scientist Abdon Garcia PA-C Estimated Blood Loss 100 Findings Consistent with Post-Op Diagnosis Specimens None Description of Procedure On October 01, 2023 Nona was brought down from her hospital room to the preoperative holding area. The operative extremity identified and signed. She was taken back to the operating room and put under general anesthesia. She was then transferred to the fracture table. The right leg was brought out to traction. Fluoroscopic images showed acceptable alignment of the hip. The right hip was then prepped and draped sterile fashion. A timeout was done. The patient and the operative extremity was properly identified. A longitudinal incision was made just superior to the greater trochanter. Dissection was taken down through the fascia. A guidepin was placed at the tip of the greater trochanter and advanced down the femoral canal. A 17 mm opening reamer was used. I did have to ream the femoral canal some up to a size 10.5 mm reamer. A Synthes 10 mm short TFN nail was then impacted into place. Fluoroscopic images were used to ensure acceptable alignment of the nail. An outrigger was placed. A small lateral incision was made and the cannula was advanced for the helical blade. A guidepin was placed into the center center position of the femoral head. The lateral cortex was then reamed and a 80 mm screw was then reamed. The final 80 mm helical blade was then impacted into place. A single distal locking screw was then placed. The wounds were then irrigated. Final fluoroscopic images showed good alignment of the fracture and the hardware. The deep fascia was closed with #1 Vicryl. Deep fat layer was closed with 2-0 Vicryl. Skin was closed with 2-0 Vicryl and kortney. She was then placed in a soft dressing. She was then extubated and transferred to a hospital bed. She was taken to the postanesthesia care unit in stable condition. She tolerated the procedure well. Abdon Garcia PA-C, was present for the entire procedure. He was critical for patient positioning, prepping, draping, retraction exposure, wound closure and application of sterile dressing. I attest to the content of the Intraoperative Record and any orders documented therein. Any exceptions are noted below.
[2023-10-01] MEDS: BUPIVACAINE/EPINEPHRINE 0.5% MPF 1:200,000 30 ML VIAL ONE (12:45)
--- NOTE | 2023-10-01 14:51 | XRay Report ---
XR hip RT min 2V HISTORY: 82 years-old Female Post-Operative implant position COMPARISON: 09/29/2023 TECHNIQUE: 2 views of the right hip FINDINGS: Acute intertrochanteric right femoral fracture redemonstrated. Status post placement of an intertroch anteric nail with medullary irland[place] demonstrating improved alignment. Mild persistent displacement of the lesser trochanteric fragment. Lateral skin kortney with expected postoperative soft tissue swelling and deep tissue air. Unchanged alignment of the chronic left pelvic ring fractures. IMPRESSION: Expected postoperative changes status post ORIF. ACT 112: Negative or not required by law. The above report was generated using voice recognition software. It may contain grammatical, syntax o r spelling errors. Electronically signed by: Ezra Recinos M.D. 10/01/2023 2:50 PM
[2023-10-01] MEDS ORDERED: ceFAZolin 2000MG 2,000 MG/15 ML SYR IV SCH (19:00)
[2023-10-01] MEDS: APIXABAN 2.5 MG TAB PO SCH (20:01)
--- NOTE | 2023-10-01 21:14 | Hospitalist Progress Note ---
Date of Service October 01, 2023 Assessment & Plan (1) Closed right femoral fracture: (2) Fall: (3) Dementia: (4) Essential hypertension: (5) Hypothyroidism: (6) GERD (gastroesophageal reflux disease): Plan 82 yo female PMHx dementia, HTN, hypothyroidism, GERD admitted for fall found to have R femoral fracture and UTI #R Femoral Fracture Pain control tylenol, morphine Ortho consult repaired on 10/01 #UTI UA suggestive of UTI UCx collected, await speciation and sensitivities Ceftriaxone 2g q24h complete 3 days on 10/02 #Fall History of multiple falls Fall precautions PT/OT ordered #Dementia Pt with declining mental status Lives in [facility] dementia unit Continue mirtazapine, risperidone #HTN Not on any chronic controller medications #Hypothyroidism Continue levothyroxine #GERD continue esomeprazole Patient POAs are her daughters Perlita Brunilda FENGI: NPO at midnight Code status: Full DVT prophylaxis: SCDs Isolation: none Disposition: med/surg Admission and Anticipated Discharge Date Admission Date: September 29, 2023 Subjective Patient is comfortable. Review of Systems Review of Systems: All systems reviewed & are unremarkable except as noted in HPI & below Physical Exam Physical Exam: Constitutional: NAD HEENT: NCAT, no conjunctival injection CV: regular rhythm, Resp: CTABL GI: soft, nondistended, nontender Skin: warm, dry, no rash appreciated Neuro: alert, oriented to person only, no focal neurologic deficit appreciated Results & Data Results & Data Vital Signs (Past 12 Hours) Vital Signs Temp Pulse Pulse Pulse Resp BP Pulse Ox 10/01/23 19:35 37.1 C 73 18 135/63 94 10/01/23 16:39 36.7 C 86 16 135/72 96 10/01/23 15:47 36.5 C 91 H 16 133/73 93 10/01/23 14:37 36.5 C 77 16 143/78 H 95 10/01/23 14:08 36.6 C 80 16 150/74 H 95 10/01/23 13:35 36.4 C L 80 16 128/71 95 10/01/23 13:15 83 16 155/74 H 98 10/01/23 13:05 80 18 149/77 H 95 10/01/23 12:55 36.1 C L 81 16 162/79 H 100 10/01/23 10:28 37.5 C 89 20 128/73 96 O2 Del Method O2 Flow Rate 10/01/23 19:35 Room Air 10/01/23 16:39 Room Air 10/01/23 15:47 Room Air 10/01/23 14:37 Room Air 10/01/23 14:08 Room Air 10/01/23 13:35 Room Air 10/01/23 13:15 Room Air 10/01/23 13:05 Oxymask 4 10/01/23 12:55 Oxymask 6 10/01/23 10:28 Room Air PG Care Time/CCT Total # of Minutes Spent Total Time Spent with Patient: Total time spent is greater than 50% in coordination of care (as documented) at patient's floor/unit and/or counseling patient: Coding Level of Care Code 78062 SUB INP/OBS CARE MIN Diagnoses Closed right femoral fracture S72.91XA Fall W19.XXXA Encounter type: initial encounter Dementia F03.90 Essential hypertension I10 Hypothyroidism E03.9 GERD (gastroesophageal reflux disease) K21.9 (2) Fall Encounter type: initial encounter Qualified Code(s): W19.XXXA - Unspecified fall, initial encounter
--- NOTE | 2023-10-02 06:48 | Orthopedic Progress Note ---
Date of Service October 02, 2023 Assessment & Plan (1) Closed fracture of right hip: Overall she is doing as well as expected. She can be weightbearing as tolerated on her right hip. I generally do Eliquis 2.5 mg twice a day for 4 weeks for DVT prophylaxis, however, I will leave that up to the hospitalist discretion. Full orthopedic discharge instructions were placed in the discharge summary. She is orthopedically stable for discharge when medically ready. Rickie Castellano was seen and examined at bedside this morning. Overall she is doing okay. She is having some soreness in the right hip. She has not been out of bed yet. She had no acute events overnight.. Review of Systems All systems reviewed & are unremarkable except as noted in HPI & below. Physical Exam Physical examination of the right hip, the dressings are clean and dry. His legs out full extension. She is unable to cooperate with neurovascular examination.. Results & Data Results & Data Laboratory Results . Diagnostic Findings Postoperative x-rays of the right hip show the implant to be in good alignment without any evidence of complication.. PG Care Time/CCT Total # of Minutes Spent Total Time Spent with Patient: Total time spent is greater than 50% in coordination of care (as documented) at patient's floor/unit and/or counseling patient: Coding Level of Care Code 33708 Post Operative Follow-Up Diagnoses Closed fracture of right hip S72.001A Encounter type: initial encounter (1) Closed fracture of right hip Encounter type: initial encounter Qualified Code(s): S72.001A - Fracture of unspecified part of neck of right femur, initial encounter for closed fracture
[2023-10-02 06:52] LABS: Basophils # (auto) 0.02 K/uL (0.00-0.20); Basophils % (auto) 0.2 %; Eosinophils # (auto) 0.13 K/uL (0.00-0.50); Eosinophils % (auto) 1.3 %; Hematocrit (blood only) 25.9 % (37.0-47.0); Hemoglobin 8.3 g/dl (12.0-16.0); Immature Granulocytes # (auto) 0.04 K/uL (0.01-0.20); Immature Granulocytes % (auto) 0.4 %; Lymphocytes # (auto) 0.68 K/uL (1.20-3.40); Lymphocytes % (auto) 6.6 %; Mean Corpuscular Hemoglobin 28.4 pg (25.0-34.0); Mean Corpuscular Volume 88.7 fL (80.0-100.0); Mean Platelet Volume 10.6 fL (9.4-12.4); Monocytes # (auto) 1.32 K/uL (0.11-0.59); Monocytes % (auto) 12.8 %; Neutrophils # (auto) 8.16 K/uL (1.40-6.50); Neutrophils % (auto) 78.7 %; Platelet Count 195 K/uL (130-400); RDW Coefficient of Variation 15.8 % (11.5-14.5); RDW Standard Deviation 51.5 fL (36.4-46.3); Red Blood Count 2.92 M/uL (4.20-5.40); White Blood Count 10.35 K/ul (4.8-10.8)
[2023-10-02 07:41] LABS: BUN Creatinine Ratio 23.4 (10-20); Calcium 7.7 mg/dl (8.6-10.3); Creatinine Clr Calc Pharmacy 44.9 ml/min; Est GFR (African American) 65.5 ml/min; Est GFR (Non-African American) 56.5 ml/min; Potassium 3.9 mmol/L (3.5-5.1)
[2023-10-02] MEDS: ACETAMINOPHEN 325 MG TAB PO PRN (11:40)
--- NOTE | 2023-10-02 20:29 | Hospitalist Progress Note ---
Date of Service October 02, 2023 Assessment & Plan (1) Closed right femoral fracture: (2) Fall: (3) Dementia: (4) Essential hypertension: (5) Hypothyroidism: (6) GERD (gastroesophageal reflux disease): Plan 82 yo female PMHx dementia, HTN, hypothyroidism, GERD admitted for fall found to have R femoral fracture and UTI #R Femoral Fracture Pain control tylenol, morphine Ortho consult repaired on 10/01 stable on 10/02 contiue sumeetis will review cbc on 10/03 #UTI UA suggestive of UTI UCx collected, await speciation and sensitivities Ceftriaxone 2g q24h complete 3 days on 10/02 #Fall History of multiple falls Fall precautions PT/OT ordered #Dementia Pt with declining mental status [facility] Continue mirtazapine, risperidone #HTN Not on any chronic controller medications #Hypothyroidism Continue levothyroxine #GERD continue esomeprazole Patient POAs are her daughters Perlita Brunilda FENGI: NPO at midnight Code status: Full DVT prophylaxis: SCDs Isolation: none Disposition: med/surg Admission and Anticipated Discharge Date Admission Date: September 29, 2023 Subjective Patient is comofrtable. Review of Systems Review of Systems: All systems reviewed & are unremarkable except as noted in HPI & below Physical Exam Physical Exam: Constitutional: NAD HEENT: NCAT, no conjunctival injection CV: regular rhythm, Resp: CTABL GI: soft, nondistended, nontender Skin: warm, dry, no rash appreciated Neuro: alert, oriented to person only, no focal neurologic deficit appreciated Results & Data Results & Data Vital Signs (Past 12 Hours) Vital Signs Temp Pulse Resp BP Pulse Ox O2 Del Method 10/02/23 20:00 36.8 C 78 16 132/68 96 Room Air 10/02/23 15:08 36.7 C 82 16 109/69 94 Room Air PG Care Time/CCT Total # of Minutes Spent Total Time Spent with Patient: Total time spent is greater than 50% in coordination of care (as documented) at patient's floor/unit and/or counseling patient: Coding Level of Care Code 26540 SUB INP/OBS CARE 2/35MIN Diagnoses Closed right femoral fracture S72.91XA Fall W19.XXXA Encounter type: initial encounter Dementia F03.90 Essential hypertension I10 Hypothyroidism E03.9 GERD (gastroesophageal reflux disease) K21.9 (2) Fall Encounter type: initial encounter Qualified Code(s): W19.XXXA - Unspecified fall, initial encounter
[2023-10-03 08:37] LABS: Basophils # (auto) 0.02 K/uL (0.00-0.20); Basophils % (auto) 0.2 %; Hematocrit (blood only) 28.6 % (37.0-47.0); Hemoglobin 8.8 g/dl (12.0-16.0); Immature Granulocytes # (auto) 0.05 K/uL (0.01-0.20); Immature Granulocytes % (auto) 0.5 %; Lymphocytes % (auto) 8.1 %; Mean Corpuscular Hemoglobin 27.9 pg (25.0-34.0); Mean Corpuscular Hgb Conc 30.8 g/dL (32.0-36.0); Mean Corpuscular Volume 90.8 fL (80.0-100.0); Mean Platelet Volume 10.5 fL (9.4-12.4); Monocytes # (auto) 1.08 K/uL (0.11-0.59); Monocytes % (auto) 10.9 %; Neutrophils # (auto) 7.66 K/uL (1.40-6.50); Neutrophils % (auto) 77.3 %; Platelet Count 230 K/uL (130-400); RDW Coefficient of Variation 15.9 % (11.5-14.5); RDW Standard Deviation 53.4 fL (36.4-46.3); Red Blood Count 3.15 M/uL (4.20-5.40); White Blood Count 9.91 K/ul (4.8-10.8)
[2023-10-03 08:52] LABS: BUN Creatinine Ratio 27.7 (10-20); Calcium 8.1 mg/dl (8.6-10.3); Creatinine Clr Calc Pharmacy 44.9 ml/min; Est GFR (African American) 65.5 ml/min; Est GFR (Non-African American) 56.5 ml/min; Potassium 3.5 mmol/L (3.5-5.1)
--- NOTE | 2023-10-03 22:32 | Hospitalist Progress Note ---
Date of Service October 03, 2023 Assessment & Plan (1) Closed right femoral fracture: (2) Fall: (3) Dementia: (4) Essential hypertension: (5) Hypothyroidism: (6) GERD (gastroesophageal reflux disease): Plan 82 yo female PMHx dementia, HTN, hypothyroidism, GERD admitted for fall found to have R femoral fracture and UTI #R Femoral Fracture Pain control tylenol, morphine Ortho consult repaired on 10/01 stable on 10/03 contiue eliquis reviewed cbc on 10/03 #UTI UA suggestive of UTI UCx collected, await speciation and sensitivities Ceftriaxone 2g q24h complete 3 days on 10/02 #Fall History of multiple falls Fall precautions PT/OT ordered #Dementia Pt with declining mental status Lives [facility] Continue mirtazapine, risperidone #HTN Not on any chronic controller medications #Hypothyroidism Continue levothyroxine #GERD continue esomeprazole Patient POAs are her daughters Perlita Brunilda Code status: Full DVT prophylaxis: SCDs Isolation: none Disposition: med/surg Admission and Anticipated Discharge Date Admission Date: September 29, 2023 Subjective Patient reports no new symptoms. Review of Systems Review of Systems: All systems reviewed & are unremarkable except as noted in HPI & below Physical Exam Physical Exam: Constitutional: NAD HEENT: NCAT, no conjunctival injection CV: regular rhythm, Resp: CTABL GI: soft, nondistended, nontender Skin: warm, dry, no rash appreciated Neuro: alert, oriented to person only, no focal neurologic deficit appreciated Results & Data Results & Data Vital Signs (Past 12 Hours) Vital Signs Temp Pulse Resp BP Pulse Ox O2 Del Method 10/03/23 20:04 36.7 C 92 H 14 128/71 96 Room Air 10/03/23 17:45 36.7 C 97 H 16 122/72 98 Room Air 10/03/23 15:07 36.9 C 82 16 102/61 94 Room Air PG Care Time/CCT Total # of Minutes Spent Total Time Spent with Patient: Total time spent is greater than 50% in coordination of care (as documented) at patient's floor/unit and/or counseling patient: Coding Level of Care Code 88029 SUB INP/OBS CARE 2/35MIN Diagnoses Closed right femoral fracture S72.91XA Fall W19.XXXA Encounter type: initial encounter Dementia F03.90 Essential hypertension I10 Hypothyroidism E03.9 GERD (gastroesophageal reflux disease) K21.9 (2) Fall Encounter type: initial encounter Qualified Code(s): W19.XXXA - Unspecified fall, initial encounter
[2023-10-04 06:27] LABS: Hemoglobin 8.1 g/dl (12.0-16.0); Mean Corpuscular Hemoglobin 28.6 pg (25.0-34.0); Mean Corpuscular Hgb Conc 32.4 g/dL (32.0-36.0); Mean Corpuscular Volume 88.3 fL (80.0-100.0); Mean Platelet Volume 10.6 fL (9.4-12.4); Platelet Count 256 K/uL (130-400); RDW Coefficient of Variation 15.7 % (11.5-14.5); RDW Standard Deviation 50.5 fL (36.4-46.3); Red Blood Count 2.83 M/uL (4.20-5.40); White Blood Count 9.52 K/ul (4.8-10.8)
[2023-10-04 06:49] LABS: BUN Creatinine Ratio 26.3 (10-20); Calcium 8.1 mg/dl (8.6-10.3); Creatinine Clr Calc Pharmacy 42.6 ml/min; Est GFR (African American) 61.5 ml/min; Est GFR (Non-African American) 53.1 ml/min; Potassium 3.8 mmol/L (3.5-5.1)
--- NOTE | 2023-10-04 07:56 | Fluoroscopy Report ---
FL hip RT 1V CLINICAL HISTORY: RIGHT HIP INTRAMEDULLARY NAIL COMPARISON STUDY: Pelvis and right hip 09/29/2023. FLUOROSCOPY TIME: 66 seconds. FLUOROSCOPY IMAGES: 1 Ka,r: 12.8 mGy FINDINGS: Single fluoroscopic spot image of the right hip was submitted for review. The images nondia gnostic. IMPRESSION: Fluoroscopic assistance as above. ACT 112: Negative or not required by law. Electronically signed by: Denis Monroe M.D. 10/04/2023 7:55 AM
[2023-10-04] MEDS: POLYETHYLENE (MIRALAX) 17 GM PACK PO SCH (08:39)
--- NOTE | 2023-10-04 22:03 | Hospitalist Progress Note ---
Date of Service October 04, 2023 Assessment & Plan (1) Closed right femoral fracture: (2) Fall: (3) Dementia: (4) Essential hypertension: (5) Hypothyroidism: (6) GERD (gastroesophageal reflux disease): Plan 82 yo female PMHx dementia, HTN, hypothyroidism, GERD admitted for fall found to have R femoral fracture and UTI #R Femoral Fracture Pain control tylenol, morphine Ortho consult repaired on 10/01 stable on 10/04 contiue eliquis reviewed cbc on 10/03 #UTI UA suggestive of UTI UCx collected, await speciation and sensitivities Ceftriaxone 2g q24h complete 3 days on 10/02 #Fall History of multiple falls Fall precautions PT/OT ordered #Dementia Pt with declining mental status Lives in [facility] Continue mirtazapine, risperidone #HTN Not on any chronic controller medications #Hypothyroidism Continue levothyroxine #GERD continue esomeprazole Patient POAs are her daughters Perlita Brunilda Code status: Full DVT prophylaxis: SCDs Isolation: none Disposition: med/surg Admission and Anticipated Discharge Date Admission Date: September 29, 2023 Subjective Patient reports no new symptoms. Review of Systems Review of Systems: All systems reviewed & are unremarkable except as noted in HPI & below Physical Exam Physical Exam: Constitutional: NAD HEENT: NCAT, no conjunctival injection CV: regular rhythm, Resp: CTABL GI: soft, nondistended, nontender Skin: warm, dry, no rash appreciated Neuro: alert, oriented to person only, no focal neurologic deficit appreciated Results & Data Results & Data Vital Signs (Past 12 Hours) Vital Signs Temp Pulse Pulse Resp BP Pulse Ox O2 Del Method 10/04/23 20:22 36.6 C 89 16 164/81 H 98 Room Air 10/04/23 14:00 36.6 C 63 16 118/62 97 Room Air 10/04/23 11:47 36.5 C 86 16 127/79 97 Room Air PG Care Time/CCT Total # of Minutes Spent Total Time Spent with Patient: Total time spent is greater than 50% in coordination of care (as documented) at patient's floor/unit and/or counseling patient: Coding Level of Care Code 05429 SUB INP/OBS CARE 2/35MIN Diagnoses Closed right femoral fracture S72.91XA Fall W19.XXXA Encounter type: initial encounter Dementia F03.90 Essential hypertension I10 Hypothyroidism E03.9 GERD (gastroesophageal reflux disease) K21.9 (2) Fall Encounter type: initial encounter Qualified Code(s): W19.XXXA - Unspecified fall, initial encounter
[2023-10-05 06:29] LABS: Basophils # (auto) 0.03 K/uL (0.00-0.20); Basophils % (auto) 0.3 %; Eosinophils # (auto) 0.72 K/uL (0.00-0.50); Eosinophils % (auto) 8.1 %; Hematocrit (blood only) 23.4 % (37.0-47.0); Hemoglobin 7.6 g/dl (12.0-16.0); Immature Granulocytes # (auto) 0.05 K/uL (0.01-0.20); Immature Granulocytes % (auto) 0.6 %; Lymphocytes # (auto) 0.97 K/uL (1.20-3.40); Lymphocytes % (auto) 10.9 %; Mean Corpuscular Hemoglobin 28.8 pg (25.0-34.0); Mean Corpuscular Hgb Conc 32.5 g/dL (32.0-36.0); Mean Corpuscular Volume 88.6 fL (80.0-100.0); Mean Platelet Volume 10.3 fL (9.4-12.4); Monocytes # (auto) 0.94 K/uL (0.11-0.59); Monocytes % (auto) 10.5 %; Neutrophils # (auto) 6.22 K/uL (1.40-6.50); Neutrophils % (auto) 69.6 %; Platelet Count 287 K/uL (130-400); RDW Coefficient of Variation 15.7 % (11.5-14.5); Red Blood Count 2.64 M/uL (4.20-5.40); White Blood Count 8.93 K/ul (4.8-10.8)
[2023-10-05 06:54] LABS: BUN Creatinine Ratio 29.3 (10-20); Calcium 8.1 mg/dl (8.6-10.3); Creatinine Clr Calc Pharmacy 51.4 ml/min; Est GFR (African American) 77.2 ml/min; Est GFR (Non-African American) 66.6 ml/min
--- NOTE | 2023-10-05 13:56 | Discharge Summary ---
Date of Service October 05, 2023 Admission HPI Per Admitting Provider 82 yo female PMHx Dementia, GERD, HTN, hypothyroidism admitted from [facility] after a fall earlier today. Patient with baseline dementia, history limited due to this. Admitted with complaint of R hip pain. XR hip shows intertrochanteric, lesser trochanter fracture of R femur. UA demonstrates UTI. Pt daughter contacted (Brunilda) states mother would wish to be full code at this time. She and other sister Perlita are POA. Aware they may revisit code status at any time. Also states pt has high sensitivity to pain medication and anesthesia. Patient may get agitated. Pt denies HOLMAN, CP, SOB, N/V/D, dysuria. Endorses hip pain. VSS Labs: UA cloudy, +nitrite, 3+ leuk esterase, 4+ bacteria Principal Diagnosis r femoral fracture Discharge Exam Constitutional: NAD HEENT: NCAT, no conjunctival injection CV: regular rhythm, Resp: CTABL GI: soft, nondistended, nontender Skin: warm, dry, no rash appreciated Neuro: alert, oriented to person only, no focal neurologic deficit appreciated Discharge Data Allergies Allergy/AdvReac Type Severity Reaction Status Date / Time amoxicillin Allergy Unknown ON [facility] Verified 09/29/23 17:36 [facility] clarithromycin [From Biaxin] Allergy Unknown ON EMBASSY Verified 09/29/23 17:36 [facility] Penicillins Allergy Unknown ON EMBASSY Verified 09/29/23 17:36 [facility] Procedures Performed Operation Date: 10/01/23 11:30 Actual Procedures p Right Hip IM Nail(Right) - Abdon Springer DO Ordered Studies 10/01/23 11:30 FL hip RT 1V Routine Hospital Course (1) Closed right femoral fracture: (2) Fall: (3) Dementia: (4) Essential hypertension: (5) Hypothyroidism: (6) GERD (gastroesophageal reflux disease): Plan 82 yo female PMHx dementia, HTN, hypothyroidism, GERD admitted for fall found to have R femoral fracture and UTI #R Femoral Fracture Age-related osteoporotic fracture of the right hip Pain control tylenol, morphine Ortho consult repaired on 10/01 stable on 10/04 contiue eliquis reviewed cbc on 10/03 discharged on 10/05 #UTI UA suggestive of UTI UCx collected, await speciation and sensitivities Ceftriaxone 2g q24h completed 5 days #Fall History of multiple falls Fall precautions PT/OT ordered #Dementia Pt with declining mental status Lives in [facility] dementia unit Continue mirtazapine, risperidone #HTN Not on any chronic controller medications #Hypothyroidism Continue levothyroxine #GERD continue esomeprazole Total Time Total Time Spent Total Time Spent (In Minutes): 32 Discharge Plan Discharge Items Patient Disposition: Transfer Snf Fac Reason For Visit: FALL, HIP FRACTURE, UTI Discharge Diagnosis: Hip fracture Activity: Resume your previous activity Non-emergency contact: Primary Care Provider Call non-emergency contact if: you have any medication questions Follow-up/Referrals: Jadiel Palacios [Primary Care Provider] - Diet: Heart Healthy Addtl Attending Provider Instructions: ORTHOPEDIC INSTRUCTIONS Hip Fracture Activity and Therapy Recommendations: 1. You were shown a series of exercises in the hospital. Do these exercises three times each day if you are able. 2. Get up and walk several times each day if you are capable. Make sure you have assistance is needed. For the first four weeks, try not to stand or walk for more than one hour at a time. If you do stand or walk for more than one hour, you will not hurt anything, but your leg will likely swell. 3. As you feel comfortable, you may change from the walker or crutches to a cane and then to independent walking if you are able. Please be safe. Medications: 1. Narcotic You will likely be sent from the hospital with the narcotic pain medication that worked best throughout your stay. 2. Eliquistake Eliquis 2.5 mg twice a day for 4 weeks. 3. Other medications may be given for specific circumstances. If you have any questions, please call the office at [phone]. 4. Resume previous home medications unless otherwise instructed TEDs/Elastic Stockings: The white elastic stockings help limit swelling and prevent blood clots from forming in your legs. The more you wear them, the more they work. Wear them for six weeks. Dressing Care: Antony can be open to air as long as the incisions are not draining. If the incisions are draining or if the antony are getting caught on your clothes then please cover the antony with dry gauze. Change the dressings as necessary to keep the incision as dry as possible Showering: You may shower 5 days from the day of surgery as long as the incisions are not draining. Do not soak the incision. Let soapy water run over the antony and pat them dry. Things To Watch For: 1. Drainage from the incision site that occurs more than one week after your surgery. 2. Increased redness at the incision site. 3. Fever above 102 degrees Fahrenheit. 4. Unusual chest pain or shortness of breath. 5. Call [facility] at with any of the above problems Follow-Up Visit: Follow-up with Dr. Springer's PA (Abdon Garcia) 2-3 weeks after your day of surgery. He will remove your antony and answer any questions. If you have any additional questions or concerns, Dr Springer is usually in the office at the same time and will be available Please call the office to set up an appointment for a time that works for you. Pending Studies at Discharge: No Stand-Alone Forms: My [facility] Skilled Items Patient informed of condition?: Yes DNR: No Discharge Level of Care: Skilled Communicable Disease: No Discharge Prognosis: Stable Lines: None Urinary Catheter: No Medications and DC Order Prescriptions: New polyethylene glycol 3350 [Miralax] 17 gram Powder In Packet 17 g PO DAILY Qty: 30 0RF Eliquis 2.5 mg Tablet 2.5 mg PO BID Qty: 60 0RF Continued paroxetine HCl [Paxil] 10 mg Tablet 20 mg PO DAILY sennosides-docusate sodium [Senna-S] 8.6-50 mg Tablet 2 tab-cap PO DAILY Rx Instructions: Hold for loose stools levothyroxine 50 mcg tablet 50 mcg PO QAM montelukast 10 mg Tablet 10 mg PO HS mirtazapine 15 mg Tablet 15 mg PO HS Rx Instructions: TOTAL DOSE 22.5 MG--TAKES WITH 7.5 MG TAB. risperidone [Risperdal] 0.5 mg Tablet 0.5 mg PO HS mineral oil-isopropyl myristat Lotion 1 applic TOPICAL BID Rx Instructions: Apply every am & pm shift, to dry skin fluticasone propion-salmeterol [Advair HFA] 115-21 mcg/actuation Hfa Aerosol Inhaler 2 puff INHALATION BID acetaminophen 325 mg Tablet 650 mg PO Q6H MDD 3gm/24 hours PRN (Reason: Fever Or Pain) lidocaine 4 % Adhesive Patch,Medicated 1 patch TOPICAL DAILY Rx Instructions: APPLY QAM, REMOVE QPM. tramadol 50 mg Tablet 50 mg PO Q8H bisacodyl [Dulcolax (bisacodyl)] 10 mg Suppository 10 mg DE DAILY PRN (Reason: Constipation) Rx Instructions: Give on the evening of the third day with no bowel movement. Fleet Enema 19-7 gram/118 mL Enema 118 ml DE DAILY PRN (Reason: Constipation) Rx Instructions: Administer on the morning of the 4th day without a bowel movement, if no results from enema notify magnesium hydroxide [Milk Of Magnesia Concentrated] 2,400 mg/10 mL Suspension 30 ml PO DAILY PRN (Reason: Constipation) Rx Instructions: Administer on the morning of the 3rd day if no bowel movement. esomeprazole magnesium 40 mg Capsule,Delayed Release(Dr/Ec) 40 mg PO DAILYBB multivitamin with minerals Tablet 1 tab PO DAILY mirtazapine 7.5 mg Tablet 7.5 mg PO HS Rx Instructions: TOTAL DOSE 22.5 MG--TAKES WITH 15 MG TAB. Discharge Orders: Discharge Order (Routine); Ordered 10/05/23 Ordered By: Ibrahima Quezada Admission Data Admit Date/Time: 09/29/23 21:19 Attending Provider: Ibrahima Quezada Admit Provider: Jermaine Romero Primary Care Provider: Jadiel Palacios Other Providers: [facility], Other Interventions: Discharge Summary Assessment (RN) Last Done: 10/05/23 15:07 Coding Level of Care Code 85639 INP/OBS DISCH >30 MIN Diagnoses Closed right femoral fracture S72.91XA Fall W19.XXXA Encounter type: initial encounter Dementia F03.90 Essential hypertension I10 Hypothyroidism E03.9 GERD (gastroesophageal reflux disease) K21.9
== END 2023-10-05 15:16 | DRG 481 ==
LOC: ED 17:04 → SUATTDRO 21:19 → EDINP 21:19 → 3E 21:52